=== PATIENT | female | born 2000 | race Caucasian/White ===

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

== ENCOUNTER 2023-03-05 15:07 | Observation (INO) ==
[2023-03-05] MEDS ORDERED: ONDANSETRON INJ 2 MG/ML 2 ML VIAL IV STA (15:53)
[2023-03-05] MEDS ORDERED: SODIUM CHLORIDE 0.9% 1,000 ML IV STA (15:53)
[2023-03-05] MEDS ORDERED: MoRPHine SULFATE 4 MG/ML 1 ML CARP\\VIAL IV STA (15:53)
[2023-03-05 16:54] LABS: Basophils # (auto) 0.02 K/uL (0.00-0.20); Basophils % (auto) 0.4 %; Eosinophils # (auto) 0.07 K/uL (0.00-0.50); Eosinophils % (auto) 1.4 %; Hematocrit (blood only) 43.5 % (37.0-47.0); Hemoglobin 14.6 g/dl (12.0-16.0); Immature Granulocytes # (auto) 0.01 K/uL (0.01-0.20); Immature Granulocytes % (auto) 0.2 %; Lymphocytes # (auto) 1.26 K/uL (1.20-3.40); Mean Corpuscular Hemoglobin 30.3 pg (25.0-34.0); Mean Corpuscular Hgb Conc 33.6 g/dL (32.0-36.0); Mean Corpuscular Volume 90.2 fL (80.0-100.0); Mean Platelet Volume 10.6 fL (9.4-12.4); Monocytes # (auto) 0.49 K/uL (0.11-0.59); Monocytes % (auto) 10.1 %; Neutrophils % (auto) 61.9 %; Platelet Count 210 K/uL (130-400); RDW Coefficient of Variation 12.2 % (11.5-14.5); RDW Standard Deviation 40.4 fL (36.4-46.3); Red Blood Count 4.82 M/uL (4.20-5.40); White Blood Count 4.85 K/ul (4.8-10.8)
[2023-03-05 17:06] LABS: Alanine Aminotransferase 16 U/L (7-52); Albumin Globulin Ratio 1.4 (0.9-2); Albumin Level 4.5 gm/dl (3.4-5.0); Alkaline Phosphatase 98 U/L (34-104); Anion Gap 5 (3-11); Aspartate Aminotransferase 20 U/L (13-39); BUN Creatinine Ratio 17.4 (10-20); Bilirubin,Total 0.9 mg/dl (0.2-1.0); Blood Urea Nitrogen 16 mg/dl (6-23); Calcium 9.3 mg/dl (8.6-10.3); Carbon Dioxide 26 mmol/L (21-32); Chloride 105 mmol/L (98-107); Creatinine Clr Calc Pharmacy 109.9 ml/min; Est GFR (African American) 103.9 ml/min; Est GFR (Non-African American) 89.6 ml/min; Globulin 3.2 gm/dl (2.5-4.0); Glucose 78 mg/dl (70-99(Fasting)); Lipase 24 U/L (11-82); Potassium 3.7 mmol/L (3.5-5.1); Sodium 136 mmol/L (136-145); Total Protein 7.7 gm/dl (6.0-8.3)
--- NOTE | 2023-03-05 18:04 | Ultrasound Report ---
ABDOMINAL ULTRASOUND, RIGHT UPPER QUADRANT HISTORY: Acute right upper quadrant abdominal pain RUQ pain. COMPARISON: 12/22/2022 FINDINGS: Pancreas: The pancreas demonstrates a normal echotexture. Liver: Unremarkable. Gallbladder: No gallbladder wall thickening. No gallstones. Sonographic Prieto's sign was unable to b e assessed secondary to the patient recently receiving pain medication. CBD: 0.5 cm. Right kidney: No hydronephrosis. IMPRESSION: No significant abnormality identified within the right upper quadrant. ACT 112: Negative or not required by law. Electronically signed by: Johan Young M.D. 03/05/2023 6:03 PM
--- NOTE | 2023-03-05 18:25 | Emergency Department Note ---
Impression & Plan Abnormal biliary HIDA scan, Right upper quadrant abdominal pain, Weight loss ED Provider Note CHIEF COMPLAINT: Right upper quadrant pain, weight loss HISTORY OF PRESENT ILLNESS: This 22-year-old female patient past medical history of GERD presents to the emergency department with complaints of recurrent right upper quadrant abdominal pain, particularly after eating. The patient has had symptoms ongoing for the last 2 months. She has been evaluated by gastroenterology through [facility], had an EGD and colonoscopy. Has had evaluation for inflammatory bowel disease. Father states she has lost 30 pounds over the last 2 to 3 months. She has been eating white rice and chicken for the most part. She did have an attack of pain last evening and becomes very nauseated. She complained of palpitations she did not vomit and has not had any fevers. Patient states her diarrhea has settled after beginning cholestyramine. She did have a HIDA scan performed this last week that revealed an EF of 99%. REVIEW OF SYSTEMS: A review of systems was performed with positives and pertinent negatives listed in the history of present illness. 10 systems were reviewed and are otherwise negative. ALLERGIES: see below MEDICATIONS: see below PMH: see below SOCIAL HISTORY: see below DDx: Cholecystitis, pancreatitis, peptic ulcer disease, inflammatory bowel disease, irritable bowel syndrome among others PHYSICAL EXAM: Vital signs reviewed. General: Well-appearing 22-year-old female, in no significant distress. HEENT: No scleral icterus, PERRLA, neck supple. Atraumatic. Cardiovascular: Regular rate and rhythm, no extra sounds. Pulmonary: Clear to auscultation bilaterally, normal work of breathing. Abdomen: Soft, mildly tender to palpation in the right upper quadrant, no rebound or guarding, nondistended, positive bowel sounds. Musculoskeletal: Atraumatic, no peripheral edema. Neurologic: Patient awake alert and oriented x 3, speech is clear Skin: Warm, dry, no rash EMERGENCY DEPARTMENT COURSE/MDM: This patient was evaluated and appeared to be in no significant distress. IV access was obtained and laboratory work was drawn. Patient was placed quality assurance monitor noted to be in a normal sinus rhythm. She was hydrated with normal saline solution, given IV morphine and Zofran for her discomfort. Patient's laboratory work is fairly reassuring. UA is negative as well as test. Ultrasound the right upper quadrant is negative for acute cholecystitis or cholelithiasis. 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 After extensive discussion with the patient's father, a family medicine physician who also provided much of the detail of the work-up that has already been performed and Dr. Cornell of general surgery, we determined that the patient would be admitted to the surgery service for possible cholecystectomy tomorrow. Patient, both parents seem happy with this plan and agreed. MONITORING: An order for cardiac monitoring was placed and the patient is noted to be in a NSR at 74 beats per minute. RADIOLOGY: Ultrasound right upper quadrant per radiology reveals no evidence of acute cholecystitis or cholelithiasis. DISPOSITION: Admission Past Med/Surg History Family History Grandmother (Maternal) Cancer lymphoma Grandfather (Maternal) Cancer Social History (Updated 12/01/22 @ 16:32 by Mariia Mathias RN) Smoking Status: Never smoker Hx Alcohol Use: Yes Hx Substance Use: No Preferred Language: Malaysian Communication Ability: Effective Appeals Coordinator Required: No Beliefs That Will Affect Care: None marital status: Single Current Living Situation: Alone current occupational status: student Other Information That Helps Us Care for You: No Feels Safe at Home: Yes Safety Concerns: Feels Safe At This Time during the past year weight has: increased > 10 lbs Assistive Devices: None Allergies Allergies Allergy/AdvReac Type Severity Reaction Status Date / Time apple Allergy Intermediate RAW Verified 03/05/23 17:35 APPLES---ORAL ALLERGY SYNDROME carrot Allergy Intermediate RAW Verified 03/05/23 17:35 CARROTS--ORAL ALLERGY SYNDROME orange Allergy Intermediate RAW Verified 03/05/23 17:35 ORANGES--ORAL ALLERGY SYNDROME Home Meds Home Medications Medication Instructions Recorded Confirmed acetaminophen 500 mg tablet 1,000 mg PO DIRECTED PRN 03/05/23 03/05/23 (Tylenol Extra Strength) PAIN/FEVER colestipol 1 gram tablet 1 g PO TID 03/05/23 03/05/23 dicyclomine 10 mg capsule 10 mg PO QID PRN ABD PAIN 03/05/23 03/05/23 ondansetron HCl 8 mg tablet 8 mg PO TID PRN NAUSEA/VOMITING 03/05/23 03/05/23 Previous Rx's Medication Instructions Recorded oxycodone-acetaminophen 5 mg-325 1 tab PO Q4H PRN pain #7 tabs 03/06/23 mg tablet (Percocet) Results & Data (ED) Vital Signs Vital Signs - 24 hr 03/05/23 15:22 03/05/23 15:54 03/05/23 16:11 Temperature 36.4 C L Temperature Source Temporal Artery Scan Pulse Rate 83 75 Respiratory Rate 19 18 12 Respiratory Effort / Characteristics Non-Labored Respiratory Depth Normal Normal Blood Pressure 145/92 H Blood Pressure [Right Arm] 124/82 Blood Pressure Mean 109 Blood Pressure Mean [Right Arm] 96 Pulse Oximetry 100 96 96 Oxygen Delivery Method Room Air Room Air Room Air Sepsis Recent Fever Within 48 Hours No Sepsis New/Unexplained Change in Mental Status No Sepsis Action Taken by Nursing No Action Required 03/05/23 16:13 03/05/23 16:30 03/05/23 17:00 Temperature Temperature Source Pulse Rate 70 70 71 Respiratory Rate 19 19 Respiratory Effort / Characteristics Respiratory Depth Blood Pressure 120/83 123/75 Blood Pressure [Right Arm] Blood Pressure Mean 91 93 Blood Pressure Mean [Right Arm] Pulse Oximetry 97 100 Oxygen Delivery Method Room Air Room Air Sepsis Recent Fever Within 48 Hours Sepsis New/Unexplained Change in Mental Status Sepsis Action Taken by Nursing 03/05/23 17:20 Temperature Temperature Source Pulse Rate 74 Respiratory Rate 22 Respiratory Effort / Characteristics Respiratory Depth Blood Pressure 120/80 Blood Pressure [Right Arm] Blood Pressure Mean 93 Blood Pressure Mean [Right Arm] Pulse Oximetry 96 Oxygen Delivery Method Room Air Sepsis Recent Fever Within 48 Hours Sepsis New/Unexplained Change in Mental Status Sepsis Action Taken by [facility] Medications Current Medication List: was personally reviewed by me Laboratory Data Attestation: I reviewed the patient's lab results. 03/05/23 16:08 03/05/23 16:08 Lab Results 03/05/23 03/05/23 Range/Units 16:08 19:43 WBC 4.85 (4.8-10.8) K/ul RBC 4.82 (4.20-5.40) M/uL Hgb 14.6 (12.0-16.0) g/dl Hct 43.5 (37.0-47.0) % MCV 90.2 (80.0-100.0) fL MCH 30.3 (25.0-34.0) pg MCHC 33.6 (32.0-36.0) g/dL RDW Std Deviation 40.4 (36.4-46.3) fL RDW Coeff of Daniel 12.2 (11.5-14.5) % Plt Count 210 (130-400) K/uL MPV 10.6 (9.4-12.4) fL Immature Gran % (Auto) 0.2 % Neut % (Auto) 61.9 % Lymph % (Auto) 26.0 % [place] % (Auto) 10.1 % Eos % (Auto) 1.4 % Baso % (Auto) 0.4 % Neut # (Auto) 3.00 (1.40-6.50) K/uL Lymph # (Auto) 1.26 (1.20-3.40) K/uL [place] # (Auto) 0.49 (0.11-0.59) K/uL Eos # (Auto) 0.07 (0.00-0.50) K/uL Baso # (Auto) 0.02 (0.00-0.20) K/uL Immature Gran # (Auto) 0.01 (0.01-0.20) K/uL ESR 9 (0-20) mm/hr Sodium 136 (136-145) mmol/L Potassium 3.7 (3.5-5.1) mmol/L Chloride 105 (98-107) mmol/L Carbon Dioxide 26 (21-32) mmol/L Anion Gap 5 (3-11) BUN 16 (6-23) mg/dl Creatinine 0.92 (0.6-1.2) mg/dl Est Cr Clr Drug Dosing 109.9 ml/min Est GFR ( Amer) 103.9 ml/min Est GFR (Non-Af Amer) 89.6 ml/min BUN/Creatinine Ratio 17.4 (10-20) Glucose 78 (70-99(Fasting)) mg/dl Calcium 9.3 (8.6-10.3) mg/dl Total Bilirubin 0.9 (0.2-1.0) mg/dl AST 20 (13-39) U/L ALT 16 (7-52) U/L Alkaline Phosphatase 98 (34-104) U/L C-Reactive Protein < 0.50 (0-0.5) mg/dl Total Protein 7.7 (6.0-8.3) gm/dl Albumin 4.5 (3.4-5.0) gm/dl Globulin 3.2 (2.5-4.0) gm/dl Albumin/Globulin Ratio 1.4 (0.9-2) Lipase 24 (11-82) U/L HCG, Qual Negative (Negative) Urine Color Yellow Urine Appearance Cloudy A (Clear) Urine pH 6.0 (4.5-7.5) Ur Specific [place] 1.027 (1.000-1.030) Urine Protein Negative (Negative) Urine Glucose (UA) Negative (Negative) Urine Ketones Trace H (Negative) Urine Blood Negative (Negative) Urine Nitrite Negative (Negative) Urine Bilirubin Negative (Negative) Urine Urobilinogen Negative (Negative) Ur Leukocyte Esterase Negative (Negative) Urine WBC (Auto) 1-5 (0-5) /hpf Urine RBC (Auto) 0-4 (0-4) /hpf U Hyaline Cast (Auto) 1-5 (0-5) /lpf U Epithel Cells (Auto) >30 H (0-5) /lpf Urine Bacteria (Auto) 1+ H (Negative) Urine Opiates Screen Neg (Neg) Ur Methadone, Qual Neg (Neg) Urine Barbiturates Neg (Neg) Ur Phencyclidine (PCP) Neg (Neg) U Amphetamin/Meth Scrn Neg (Neg) MDMA (Ecstasy) Screen Neg (Neg) U Benzodiazepines Scrn Neg (Neg) Ur Cocaine Metabolite Neg (Neg) U Marijuana (THC) Screen Neg (Neg) Administered Medications Discontinued Medications Bupivacaine HCl (Bupivacaine 0.5 % 5 Mg/1 Ml Mpf 30ml Vial) Confirm Administered Dose 30 ml .ROUTE .STFeedback-Machine-MED ONE Stop: 03/06/23 07:08 Last Admin: 03/06/23 09:40 Dose: 30 ml Documented By: MDD Colestipol HCl (Colestipol Hcl 1 Gm Tab) 1 gm PO DAILY@1000,1500,2200 [facility] Stop: 04/05/23 14:59 Last Admin: 03/06/23 17:46 Dose: Not Given Documented By: KD Fentanyl Citrate (Fentanyl Citrate Pf 100 Mcg/2 Ml Vial) 25 mcg IV Q5M PRN PRN Reason: PACU Use Only-Pain Stop: 03/06/23 17:04 Last Admin: 03/06/23 11:15 Dose: 25 mcg Documented By: Admin: 03/06/23 11:10 Dose: 25 mcg Documented By: Admin: 03/06/23 11:05 Dose: 25 mcg Documented By: Admin: 03/06/23 10:54 Dose: 25 mcg Documented By: SED Fentanyl Citrate (Fentanyl Citrate Pf 100 Mcg/2 Ml Vial) Confirm Administered Dose 100 mcg .ROUTE .STK-MED ONE Stop: 03/06/23 10:50 Last Admin: 03/06/23 12:49 Dose: Not Given Documented By: MONICA Sodium Chloride (Nss) 1,000 mls @ 999 mls/hr IV .Q1H1M STA Stop: 03/05/23 16:53 Last Infusion: 03/05/23 17:13 Dose: Infused Documented By: Admin: 03/05/23 16:01 Dose: 999 mls/hr Documented By: ABBIE Lactated Ringer's (Lr) 1,000 mls @ 100 mls/hr IV .Q10H SUSI Stop: 04/04/23 21:39 Last Admin: 03/06/23 18:02 Dose: Not Given Documented By: Infusion: 03/06/23 18:02 Dose: Infused Documented By: Infusion: 03/06/23 14:04 Dose: 100 mls/hr Documented By: Admin: 03/06/23 05:21 Dose: 100 mls/hr Documented By: Infusion: 03/06/23 05:21 Dose: Infused Documented By: Admin: 03/05/23 22:08 Dose: 100 mls/hr Documented By: MARIBELL Promethazine HCl 12.5 mg/ (Sodium Chloride) 50.5 mls @ 204 mls/hr IV ONCE PRN PRN Reason: PACU Use Only-Nausea/Vomiting Stop: 03/06/23 17:04 Last Infusion: 03/06/23 11:44 Dose: Infused Documented By: Admin: 03/06/23 10:53 Dose: 204 mls/hr Documented By: ARPIT Cefazolin Sodium (Ancef 2000mg) 2,000 mg in 15 mls @ 3.75 mls/min IV PREOP ONE; Protocol Stop: 03/06/23 09:36 Last Admin: 03/06/23 09:21 Dose: 3.75 mls/min Documented By: GLEN Ketorolac Tromethamine (Ketorolac Tromethamine 15 Mg/Ml Vial) 15 mg IV Q6H PRN PRN Reason: Pain & Pre PT Stop: 03/10/23 21:39 Last Admin: 03/05/23 23:27 Dose: 15 mg Documented By: MARIBELL Morphine Sulfate (Morphine Sulfate 4 Mg/Ml 1 Ml Carp\Vial) 4 mg IV NOW STA Stop: 03/05/23 15:54 Last Admin: 03/05/23 16:02 Dose: 4 mg Documented By: ABBIE Morphine Sulfate (Morphine Sulfate 4 Mg/Ml 1 Ml Carp\Vial) 4 mg IV Q3H PRN PRN Reason: Pain (6,7,8,9,10) Stop: 03/20/23 11:54 Last Admin: 03/06/23 12:29 Dose: 4 mg Documented By: MONICA Ondansetron HCl (Ondansetron Inj 2 Mg/Ml 2 Ml Vial) 4 mg IV NOW STA Stop: 03/05/23 15:54 Last Admin: 03/05/23 16:02 Dose: 4 mg Documented By: ABBIE Ondansetron HCl (Ondansetron Inj 2 Mg/Ml 2 Ml Vial) 4 mg IV Q4H PRN PRN Reason: Nausea And Vomiting Stop: 04/04/23 21:39 Last Admin: 03/06/23 07:46 Dose: 4 mg Documented By: MONICA Oxycodone/Acetaminophen (Oxycodone/Acetaminophen 5mg/325mg Tab) 1 tab PO Q4H PRN PRN Reason: MODERATE Pain (4,5,6) & Pre PT Stop: 03/20/23 11:54 Last Admin: 03/06/23 15:06 Dose: 1 tab Documented By: MONICA Imaging Data Radiologist's Impression: Gallbladder Ultrasound 03/05/23 15:52 ABDOMINAL ULTRASOUND, RIGHT UPPER QUADRANT HISTORY: Acute right upper quadrant abdominal pain RUQ pain. COMPARISON: 12/22/2022 FINDINGS: Pancreas: The pancreas demonstrates a normal echotexture. Liver: Unremarkable. Gallbladder: No gallbladder wall thickening. No gallstones. Sonographic Prieto's sign was unable to be assessed secondary to the patient recently receiving pain medication. CBD: 0.5 cm. Right kidney: No hydronephrosis. IMPRESSION: No significant abnormality identified within the right upper quadrant. ACT 112: Negative or not required by law. Electronically signed by: Johan Young M.D. 03/05/2023 6:03 PM Discharge Plan Visit Data Chief Complaint: Abdominal Pain Stated Complaint: SEVERE ABDOMIAL PAIN, RT FLANK PAIN, PALPITATIONS ED Provider: Larissa Bear Discharge Problem: Abnormal biliary HIDA scan, Right upper quadrant abdominal pain, Weight loss Patient Disposition: Admitted As Inpatient Condition: Good Discharge Instructions Interventions: ED Discharge Assessment Last Done: 03/05/23 21:09
[2023-03-05 19:48] LABS: C Reactive Protein < 0.50 mg/dl (0-0.5)
[2023-03-05 20:01] LABS: Appearance Urine Cloudy (Clear); Bacteria Urine Automated 1+ (Negative); Bilirubin Urine Negative (Negative); Blood Urine Negative (Negative); Color Urine Yellow; Epithelial Cell Urine Auto >30 /lpf (0-5); Glucose Urine UA Negative (Negative); Ketones Urine Trace (Negative); Leukocyte Esterase Urine Negative (Negative); Nitrite Urine Negative (Negative); Protein Urine Negative (Negative); RBC Urine Automated 0-4 /hpf (0-4); Specific Gravity Urine 1.027 (1.000-1.030); Urobilinogen Urine Negative (Negative)
[2023-03-05 20:09] LABS: Pregnancy Test, Serum Negative (Negative)
--- NOTE | 2023-03-05 20:11 | History & Physical Report ---
Date of Service March 05, 2023 Assessment & Plan (1) Abdominal pain: Plan: 22 yr old woman with persistent abdominal pain and diarrhea, extensive workup negative. Only abnormality is HIDA scan showing EF 99% (and a lab showing elevated fecal calprotecin - nonspecific). We reviewed that hyperkinetic gallbladder is not well understood - lap cholecystectomy is almost a diagnostic test in itself to see if the gallbladder is the source of her symptoms. Discussed up to 50% risk of recurrence/ persistence of symptoms. Other risks of bleeding, infection, conversion to open, bile leak, persistent diarrhea, intolerance to foods reviewed. She prefers to have the gallbladder removed as it is the only abnormality identified. Consent signed. Will place in observation overnight and plan on surgery tomorrow. History of Present Illness Chief Complaint: abdominal pain Primary Care Provider: Tiny Wheatley, 22 yr old woman (daughter of Dr. Hdez) here for gallbladder removal due to worsening abdominal symptoms, nausea, almost 30 lb weight loss. Symptoms have severely worsened in the past week, taking zofran but not able to eat much of anything. No fevers or chills. Pain occurs more often after eating but is not always related to fatty meals. Has had ongoing diarrhea for months, on cholesti ericka. Saw Dr. Milligan and had egd/ colonoscopy with biopsies which were negative. H.pylori negative. Celiac panel negative, RUQ U/S x 2 negative. HIDA scan with EF of 99%. Allergies Allergy/AdvReac Type Severity Reaction Status Date / Time apple Allergy Intermediate RAW Verified 03/05/23 17:35 APPLES---ORAL ALLERGY SYNDROME carrot Allergy Intermediate RAW Verified 03/05/23 17:35 CARROTS--ORAL ALLERGY SYNDROME orange Allergy Intermediate RAW Verified 03/05/23 17:35 ORANGES--ORAL ALLERGY SYNDROME Home Medications Medication Instructions Recorded Confirmed Type acetaminophen 500 mg tablet 1,000 mg PO DIRECTED PRN 03/05/23 03/05/23 History (Tylenol Extra Strength) PAIN/FEVER colestipol 1 gram tablet 1 g PO TID 03/05/23 03/05/23 History dicyclomine 10 mg capsule 10 mg PO QID PRN ABD PAIN 03/05/23 03/05/23 History ondansetron HCl 8 mg tablet 8 mg PO TID PRN NAUSEA/VOMITING 03/05/23 03/05/23 History Past Med/Surg History Family History Grandmother (Maternal) Cancer lymphoma Grandfather (Maternal) Cancer Social History (Updated 12/01/22 @ 16:32 by Mariia Mathias RN) Smoking Status: Never smoker Preferred Language: Italian marital status: Single current occupational status: student Feels Safe at Home: Yes during the past year weight has: increased > 10 lbs Review of Systems Review of Systems: All systems reviewed & are unremarkable except as noted in HPI & below Physical Exam Constitutional: WD/WN, vitals as above Eyes: PERRL, conjunctivae normal, anicteric sclerae Neck: trachea midline, no thyromegaly Respiratory: normal respiratory effort, lungs clear to auscultation Cardiovascular: RRR, no murmur, no edema Gastrointestinal (Abdomen): Inspection/Auscultation: abdomen normal to inspection and normal bowel sounds; abdomen not distended Percussion/Palpation: + abdomen tender (mild on right side of abdomen) and abdomen soft; no guarding, no hepatosplenomegaly and no hernia Musculoskeletal: no cyanosis or clubbing, extremities motor strength 5/5 Neurologic: awake; no focal motor deficits Psychiatric: A+Ox3, euthymic affect Results & Data Results & Data Vital Signs (Past 12 Hours) Vital Signs Temp Pulse Resp BP BP Pulse Ox O2 Del Method 03/05/23 17:20 74 22 120/80 96 Room Air 03/05/23 17:00 71 19 123/75 100 Room Air 03/05/23 16:30 70 19 120/83 97 Room Air 03/05/23 16:13 70 03/05/23 16:11 12 124/82 96 Room Air 03/05/23 15:54 75 18 96 Room Air 03/05/23 15:22 36.4 C L 83 19 145/92 H 100 Room Air Laboratory Results 03/05/23 03/05/23 Range/Units 19:43 16:08 WBC 4.85 (4.8-10.8) K/ul RBC 4.82 (4.20-5.40) M/uL Hgb 14.6 (12.0-16.0) g/dl Hct 43.5 (37.0-47.0) % MCV 90.2 (80.0-100.0) fL MCH 30.3 (25.0-34.0) pg MCHC 33.6 (32.0-36.0) g/dL RDW Std Deviation 40.4 (36.4-46.3) fL RDW Coeff of Daniel 12.2 (11.5-14.5) % Plt Count 210 (130-400) K/uL MPV 10.6 (9.4-12.4) fL Immature Gran % (Auto) 0.2 % Neut % (Auto) 61.9 % Lymph % (Auto) 26.0 % [place] % (Auto) 10.1 % Eos % (Auto) 1.4 % Baso % (Auto) 0.4 % Neut # (Auto) 3.00 (1.40-6.50) K/uL Lymph # (Auto) 1.26 (1.20-3.40) K/uL [place] # (Auto) 0.49 (0.11-0.59) K/uL Eos # (Auto) 0.07 (0.00-0.50) K/uL Baso # (Auto) 0.02 (0.00-0.20) K/uL Immature Gran # (Auto) 0.01 (0.01-0.20) K/uL ESR Pending Sodium 136 (136-145) mmol/L Potassium 3.7 (3.5-5.1) mmol/L Chloride 105 (98-107) mmol/L Carbon Dioxide 26 (21-32) mmol/L Anion Gap 5 (3-11) BUN 16 (6-23) mg/dl Creatinine 0.92 (0.6-1.2) mg/dl Est Cr Clr Drug Dosing 109.9 ml/min Est GFR ( Amer) 103.9 ml/min Est GFR (Non-Af Amer) 89.6 ml/min BUN/Creatinine Ratio 17.4 (10-20) Glucose 78 (70-99(Fasting)) mg/dl Calcium 9.3 (8.6-10.3) mg/dl Total Bilirubin 0.9 (0.2-1.0) mg/dl AST 20 (13-39) U/L ALT 16 (7-52) U/L Alkaline Phosphatase 98 (34-104) U/L C-Reactive Protein < 0.50 (0-0.5) mg/dl Total Protein 7.7 (6.0-8.3) gm/dl Albumin 4.5 (3.4-5.0) gm/dl Globulin 3.2 (2.5-4.0) gm/dl Albumin/Globulin Ratio 1.4 (0.9-2) Lipase 24 (11-82) U/L HCG, Qual Pending Urine Color Yellow Urine Appearance Cloudy A (Clear) Urine pH 6.0 (4.5-7.5) Ur Specific [place] 1.027 (1.000-1.030) Urine Protein Negative (Negative) Urine Glucose (UA) Negative (Negative) Urine Ketones Trace H (Negative) Urine Blood Negative (Negative) Urine Nitrite Negative (Negative) Urine Bilirubin Negative (Negative) Urine Urobilinogen Negative (Negative) Ur Leukocyte Esterase Negative (Negative) Urine WBC (Auto) 1-5 (0-5) /hpf Urine RBC (Auto) 0-4 (0-4) /hpf U Hyaline Cast (Auto) 1-5 (0-5) /lpf U Epithel Cells (Auto) >30 H (0-5) /lpf Urine Bacteria (Auto) 1+ H (Negative) Urine Opiates Screen Pending Ur Methadone, Qual Pending Urine Barbiturates Pending Ur Phencyclidine (PCP) Pending U Amphetamin/Meth Scrn Pending MDMA (Ecstasy) Screen Pending U Benzodiazepines Scrn Pending Ur Cocaine Metabolite Pending U Marijuana (THC) Screen Pending Diagnostic Findings Chart in [employer] and [employer] reviewed. Imaging including negative RUQ U/S HIDA scan showing EF 99% all reviewed. Code Status & VTE Plan VTE Prophylaxis Plan VTE Prophylaxis will be ordered: Yes (1) Abdominal pain Abdominal location: right upper quadrant Qualified Code(s): R10.11 - Right upper quadrant pain
--- NOTE | 2023-03-05 20:42 | Electrocardiogram Report ---
Test Reason : Blood Pressure : / mmHG Vent. Rate : 068 BPM Atrial Rate : 068 BPM P-R Int : 136 ms QRS Dur : 088 ms QT Int : 382 ms P-R-T Axes : 029 -22 016 degrees QTc Int : 406 ms Poor data quality, interpretation may be adversely affected Normal sinus rhythm with sinus arrhythmia Normal ECG When compared with ECG of 07-JUL-2016 07:11, PREVIOUS ECG IS PRESENT Confirmed by Ghanshyam Moore ([id number]) on 03/05/2023 8:41:58 PM Referred By: Confirmed By:Medardo Moore
[2023-03-05 20:43] LABS: Amphetamines+Metham, Urine Neg (Neg); Barbiturates, Urine Neg (Neg); Benzodiazepine, Urine Neg (Neg); Cocaine, Urine Neg (Neg); MDMA (Ecstacy), Urine Neg (Neg); Methadone, Urine Neg (Neg); Opiate, Urine Neg (Neg); Phencyclidine, Urine Neg (Neg)
[2023-03-05] MEDS ORDERED: KETOROLAC TROMETHAMINE 15 MG/ML VIAL IV PRN (21:40)
[2023-03-05] MEDS ORDERED: ONDANSETRON INJ 2 MG/ML 2 ML VIAL IV PRN (21:40)
[2023-03-05] MEDS: LACTATED RINGER'S 1,000 ML IV SCH (22:08)
[2023-03-06] MEDS: LACTATED RINGER'S 1,000 ML IV SCH ×2 (05:21→18:02)
[2023-03-06] MEDS ORDERED: BUPIVACAINE 0.5 % 5 MG/1 ML MPF 30ML VIAL ONE (07:07)
--- NOTE | 2023-03-06 07:18 | Anesthesiology Consultation ---
Date of Service March 06, 2023 Assessment & Plan Chart Review Chart Review: Acceptable Risk for Surgery and Patient NOT seen in Pre Admission Testing Consults Requested none ASA [id number] Proposed Anesthesia Anesthesia Type: General History Surgery Operation Date: 03/06/23 09:00 Proposed Procedures p Laparoscopic Cholecystectomy - Alondra Cornell MD Height/Weight Height: 5 ft 7 in Weight: 86.9 kg Allergies Allergy/AdvReac Type Severity Reaction Status Date / Time apple Allergy Intermediate RAW Verified 03/05/23 17:35 APPLES---ORAL ALLERGY SYNDROME carrot Allergy Intermediate RAW Verified 03/05/23 17:35 CARROTS--ORAL ALLERGY SYNDROME orange Allergy Intermediate RAW Verified 03/05/23 17:35 ORANGES--ORAL ALLERGY SYNDROME Medications Home Medications Medication Instructions Recorded Confirmed Last Taken acetaminophen 500 mg tablet 1,000 mg PO DIRECTED PRN 03/05/23 03/05/23 Unknown (Tylenol Extra Strength) PAIN/FEVER colestipol 1 gram tablet 1 g PO TID 03/05/23 03/05/23 03/04/23 dicyclomine 10 mg capsule 10 mg PO QID PRN ABD PAIN 03/05/23 03/05/23 03/05/23 08:00 ondansetron HCl 8 mg tablet 8 mg PO TID PRN NAUSEA/VOMITING 03/05/23 03/05/23 Unknown Active Medications Generic Name Dose Route Start Last Admin Trade Name Freq PRN Reason Stop Dose Admin Lactated Ringer's 1,000 mls @ 100 mls/hr 03/05/23 21:40 03/06/23 05:21 Lr IV 04/04/23 21:39 100 mls/hr .Q10H SUSI Administration Ketorolac Tromethamine 15 mg 03/05/23 21:40 03/05/23 23:27 Ketorolac Tromethamine 15 Mg/Ml Vial IV 03/10/23 21:39 15 mg Q6H PRN Administration Pain & Pre PT Past Medical History obese GERD Exercise / Class Metabolic Activity II 4-5 Yardwork/Stairs/Walk up hill Past Family History Family History Grandmother (Maternal) Cancer lymphoma Grandfather (Maternal) Cancer Past Anesthesia History No Hx of Anesthesia Complications and No Family Hx of Anesthesia Complications History of PONV No Hx of PONV and No Hx of Motion Sickness Social History Smoking Status: Never smoker Hx Alcohol Use: Yes alcohol intake frequency: holidays/special occasions only Hx Substance Use: No substance use type: does not use Physical Exam Vital Signs Last Vital Signs Temp 36.7 C 03/05/23 21:30 Pulse 62 03/05/23 21:30 Resp 16 03/05/23 21:30 BP 130/89 03/05/23 21:30 Pulse Ox 97 03/05/23 21:30 O2 Del Method Room Air 03/05/23 21:30 Testing Laboratory Results 03/05/23 16:08 03/05/23 16:08 Urine Color Yellow 03/05/23 19:43 Urine Appearance Cloudy (Clear) A 03/05/23 19:43 Urine pH 6.0 (4.5-7.5) 03/05/23 19:43 Ur Specific [place] 1.027 (1.000-1.030) 03/05/23 19:43 Urine Protein Negative (Negative) 03/05/23 19:43 Urine Glucose (UA) Negative (Negative) 03/05/23 19:43 Urine Ketones Trace (Negative) H 03/05/23 19:43 Urine Nitrite Negative (Negative) 03/05/23 19:43 Ur Leukocyte Esterase Negative (Negative) 03/05/23 19:43 Urine WBC (Auto) 1-5 /hpf (0-5) 03/05/23 19:43 Urine RBC (Auto) 0-4 /hpf (0-4) 03/05/23 19:43 U Hyaline Cast (Auto) 1-5 /lpf (0-5) 03/05/23 19:43 U Epithel Cells (Auto) >30 /lpf (0-5) H 03/05/23 19:43 Urine Bacteria (Auto) 1+ (Negative) H 03/05/23 19:43 Electrocardiogram Date: 03/05/23 Findings: + NSR @ (@ 70 w/ SA)
[2023-03-06] MEDS ORDERED: LIDOCAINE 2% 2 ML VIAL/AMP(20MG/ML) INFIL ONE (08:48)
[2023-03-06] MEDS ORDERED: PROPOFOL IV EMULSION 10 MG/ML 20 ML VIAL IV ONE (08:48)
[2023-03-06] MEDS ORDERED: DEXAMETHASONE SOD INJ 4 MG/ML VIAL ONE (08:48)
[2023-03-06] MEDS ORDERED: ONDANSETRON INJ 2 MG/ML 2 ML VIAL ONE ×2 (08:48→10:23)
[2023-03-06] MEDS ORDERED: fentaNYL citrate PF 100 MCG/2 ML VIAL ONE ×3 (08:49→10:49)
[2023-03-06] MEDS ORDERED: MIDAZOLAM HCL 1 MG/ML 2ML VIAL ONE (08:49)
[2023-03-06] MEDS ORDERED: ROCURONIUM BROMIDE 10 MG/ML 5 ML VIAL IV ONE (08:50)
[2023-03-06] MEDS ORDERED: FLUMAZENIL 0.1 MG/1 ML 10 ML VIAL IV PRN (09:04)
[2023-03-06] MEDS ORDERED: PROMETHAZINE HCL 12.5 MG in SODIUM CHLORIDE 0.9% 50 ML IV PRN (09:04)
[2023-03-06] MEDS ORDERED: NALOXONE HCL 0.4 MG/1 ML VIAL/CARP IV PRN (09:04)
[2023-03-06] MEDS ORDERED: HYDROmorphone INJ 1 MG/ML SYRINGE IV PRN (09:04)
[2023-03-06] MEDS ORDERED: ePHEDrine sulfate 50 MG/ML AMP IV PRN (09:04)
[2023-03-06] MEDS ORDERED: ATROPINE SULFATE 0.1 MG/ML 10ML SYR IV PRN (09:04)
[2023-03-06] MEDS ORDERED: ONDANSETRON INJ 2 MG/ML 2 ML VIAL IV PRN (09:04)
--- NOTE | 2023-03-06 09:15 | History & Physical Bridge Note ---
Date of Service March 06, 2023 History & Physical Bridge Note I have examined the patient, reviewed the History & Physical and in the interval since the performance of the History & Physical I have noted the following changes of clinical significance: no changes noted
[2023-03-06] MEDS ORDERED: ceFAZolin 330 MG/ML 1 GM VIAL ONE (09:28)
[2023-03-06] MEDS ORDERED: ceFAZolin 2000MG 2,000 MG/15 ML SYR IV ONE (09:33)
[2023-03-06] MEDS ORDERED: KETOROLAC 30 MG/ML VIAL ONE (09:55)
[2023-03-06] MEDS ORDERED: SUGAMMADEX SODIUM 200 MG/2 ML VIAL IV ONE (09:57)
--- NOTE | 2023-03-06 10:26 | Operative Report ---
PG Post Operative Report Pre & Post Diagnosis Operation Date: 03/06/23 09:00 Pre-Op Diagnosis: hyperkinetic gallbladder, abdominal pain Post-Op Diagnosis: hyperkinetic gallbladder, abdominal pain I identified the patient and participated in the time-out.: Yes Procedure Operation Date: 03/06/23 09:00 Actual Procedures p Laparoscopic Cholecystectomy - Alondra Cornell MD Surgeon Alondra Cornell MD Glass Curvature Gauger none Estimated Blood Loss 5 Findings Consistent with Post-Op Diagnosis normal appearing gallbladder with minimal adhesions of duodenum Fluids 1100 cc Specimens gallbladder Drains none Anesthesia Type General Complications none Disposition Accompanied Patient To Recovery: No Indications 22-year-old woman with abdominal pain diarrhea and weight loss. Extensive work- up only revealed a hyperkinetic gallbladder. After counseling she elected to undergo laparoscopic cholecystectomy. She did understand risks of persistence of her symptoms. Description of Procedure The patient received 2 g of Ancef preoperatively. After the induction of general endotracheal anesthesia, she had placement of sequential compression devices. Her abdomen was sterilely prepped and draped. She was positioned in Trendelenburg. A supraumbilical incision was made and a Veress needle placed into the peritoneal cavity. This was tested with a saline drop test. Initial pressure was 4 mmHg and this was taken up to 15 mmHg. A 5 mm trocar was placed. The camera was through the trocar site. 3 additional trocars were placed under direct vision. A 11 mm in the epigastrium and 2 5 mm on the right side of the abdomen. The abdomen was inspected and noted to be normal. The gallbladder was grasped and retracted over the edge of the liver. Dissection was begun at the triangle of Calot and the cystic duct and cystic artery identified. The critical views were seen anteriorly and posteriorly. The gallbladder was doubly clipped on the remaining side doubly clipped on the gallbladder side and divided. The cystic artery was similarly clipped and divided. The gallbladder was dissected off the liver bed without difficulty. It was placed in an Endobag and removed through the epigastric incision. The abdomen was irrigated and suctioned clear. Hemostasis was noted to be present. The trocars were removed. 30 cc of half percent Marcaine was used for local anesthesia. The fascia of the epigastric incision was closed with 0 Vicryl stitches placed anteriorly. The skin of all 4 incisions closed with running subcuticular 4-0 Vicryl sutures. Steri-Strips and sterile dressings were applied. She was awakened from anesthesia and taken to recovery in stable condition. I attest to the content of the Intraoperative Record and any orders documented therein. Any exceptions are noted below.
[2023-03-06] MEDS: fentaNYL citrate PF 100 MCG/2 ML VIAL IV PRN ×4 (10:54→11:15)
[2023-03-06] MEDS ORDERED: MoRPHine SULFATE 4 MG/ML 1 ML CARP\\VIAL IV PRN (11:55)
[2023-03-06] MEDS ORDERED: oxyCODONE/ACETAMINOPHEN 5mg/325mg TAB PO PRN ×2 (11:55)
[2023-03-06] MEDS ORDERED: MoRPHine SULFATE 2 MG/ML CARP IV PRN (11:55)
[2023-03-06] MEDS ORDERED: ACETAMINOPHEN 500 MG TAB PO PRN (11:55)
[2023-03-06] MEDS ORDERED: DICYCLOMINE HCL 10 MG CAP PO PRN (11:55)
--- NOTE | 2023-03-06 11:57 | Anesthesiology Progress Note ---
Date of Service March 06, 2023 Anesthesia Post Procedure Vital Signs Vital Signs: Temp Pulse Pulse Pulse Resp BP BP 03/06/23 11:40 95 H 21 129/81 03/06/23 11:25 36.3 C L 86 17 126/73 03/06/23 11:15 71 17 130/71 03/06/23 11:05 85 19 148/82 H 03/06/23 10:55 85 18 138/81 03/06/23 10:45 100 H 18 137/73 03/06/23 10:37 36.1 C L 114 H 23 126/89 03/05/23 21:30 36.7 C 62 16 03/05/23 20:24 70 12 122/84 03/05/23 20:11 77 03/05/23 19:30 64 20 117/88 03/05/23 17:20 74 22 120/80 03/05/23 17:00 71 19 123/75 03/05/23 16:30 70 19 120/83 03/05/23 16:13 70 03/05/23 16:11 12 03/05/23 15:54 75 18 03/05/23 15:22 36.4 C L 83 19 145/92 H BP Pulse Ox O2 Del Method O2 Flow Rate 03/06/23 11:40 97 Room Air 03/06/23 11:25 100 Room Air 03/06/23 11:15 100 Oxymask 2 03/06/23 11:05 100 Oxymask 3 03/06/23 10:55 100 Oxymask 3 03/06/23 10:45 100 Oxymask 6 03/06/23 10:37 100 Oxymask 6 03/05/23 21:30 130/89 97 Room Air 03/05/23 20:24 96 Room Air 03/05/23 20:11 03/05/23 19:30 98 Room Air 03/05/23 17:20 96 Room Air 03/05/23 17:00 100 Room Air 03/05/23 16:30 97 Room Air 03/05/23 16:13 03/05/23 16:11 124/82 96 Room Air 03/05/23 15:54 96 Room Air 03/05/23 15:22 100 Room Air Pain Intensity Abdomen: Pain Intensity: 3 Transfer of Care Handoff Completed per policy Notes Mental Status: alert / awake / arousable Patient Amnestic to Procedure: Yes Nausea / Vomiting: adequately controlled Pain: adequately controlled Airway Patency, RR, SpO2: stable & adequate BP & HR: stable & adequate Hydration State: stable & adequate Anesthetic Complications: no major complications apparent
[2023-03-06] MEDS ORDERED: ONDANSETRON 8MG OD TAB PO PRN (12:11)
[2023-03-06] MEDS ORDERED: COLESTIPOL HCL 1 GM TAB PO SCH (15:00)
--- NOTE | 2023-03-08 16:28 | Discharge Summary ---
Date of Service March 08, 2023 Admission HPI Per Admitting Provider 22 yr old woman (daughter of [place]) here for gallbladder removal due to worsening abdominal symptoms, nausea, almost 30 lb weight loss. Symptoms have severely worsened in the past week, taking zofran but not able to eat much of anything. No fevers or chills. Pain occurs more often after eating but is not always related to fatty meals. Has had ongoing diarrhea for months, on cholestipol. Saw Dr. Milligan and had egd/ colonoscopy with biopsies which were negative. H.pylori negative. Celiac panel negative, RUQ U/S x 2 negative. HIDA scan with EF of 99%. Admission Exam (Per Admitting) Constitutional WD/WN, vitals as above Eyes PERRL, conjunctivae normal, anicteric sclerae Neck trachea midline, no thyromegaly Respiratory normal respiratory effort, lungs clear to auscultation Cardiovascular RRR, no murmur, no edema Gastrointestinal (Abdomen) Inspection/Auscultation: abdomen normal to inspection and normal bowel sounds; abdomen not distended Percussion/Palpation: + abdomen tender (mild on right side of abdomen) and abdomen soft; no guarding, no hepatosplenomegaly and no hernia Musculoskeletal no cyanosis or clubbing, extremities motor strength 5/5 Neurologic awake; no focal motor deficits Psychiatric A+Ox3, euthymic affect Discharge Data Consultations 03/05/23 19:23 ED Decision to Admit Stat Procedures Performed Operation Date: 03/06/23 09:00 Actual Procedures p Laparoscopic Cholecystectomy - Alondra Cornell MD Hospital Course (1) Abdominal pain: 22 yr old woman with persistent abdominal pain and diarrhea, extensive workup negative. Only abnormality is HIDA scan showing EF 99% (and a lab showing elevated fecal calprotecin - nonspecific). We reviewed that hyperkinetic gallbladder is not well understood - lap cholecystectomy is almost a diagnostic test in itself to see if the gallbladder is the source of her symptoms. Discussed up to 50% risk of recurrence/ persistence of symptoms. Other risks of bleeding, infection, conversion to open, bile leak, persistent diarrhea, intolerance to foods reviewed. She prefers to have the gallbladder removed as it is the only abnormality identified. Consent signed. Underwent lap cholecystecotmy with routine postop course. Intraop findings notable for normal appear gallbladder.
--- OUTSIDE RECORDS SUMMARY | 2023-03-12 05:38 | External Medical Summary | Summary of Care ---
Author Name Unknown Organization [facility] Address [address] [place] [address] Phone [phone] Care Team Providers Care Tire Mold Tester Name Role Phone DioniBjorn Primary Care Provider Reason for Referral * Precert (Within 10 days (routine)) - Pending Review Specialty Diagnoses / Procedures Referred By Contac t Referred To Contact Radiology Diagnoses Upper abdominal pain Elevated fecal calprotectin Procedures NM HEPATOBILIARY SYSTEM WITH PHARMACOLOGIC INTERVENTION Lita Rodrigez CRNP [address] [place] [address] Referral ID Status Reason Start Date Expiration Date V isits Requested Visits Authorized [id number] Pending Review 02/11/2023 999 999 * Precert (Within 10 days (routine)) - Pending Review Specialty Diagnoses / Procedures Referred By Contac t Referred To Contact Radiology Diagnoses Upper abdominal pain Elevated fecal calprotectin Procedures MRI ABDOMEN W WO CONTRAST MRI PELVIS W WO CONTRAST Lita Rodrigez CRNP [address] [place] [address] Referral ID Status Reason Start Date Expiration Date V isits Requested Visits Authorized [id number] Pending Review 02/11/2023 999 999 Reason for Visit * Reason Comments NEW PATIENT Abdominal issues, noonan d scopes at PS, pt had high shagufta protectant, pt waiting on results, what should she do moving forward Encounter Details Date Type Department Care Team Description 02/11/2023 Office Visit Gastroenterology, [facility] [address] [place] [address] Lita Rodrigez CRNP [address] [place] [id number] Upper abdominal pain*; Elevated fecal calprotectin Allergies Active Allergy Reactions Severity Noted Date Comments Anti-Oxidant 02/11/2023 Fresh fruits and veggies documented as of this encounter (statuses as of 02/14/2023) Medications Medication Sig Dispensed Refills Start Date End Date Status Colestipol HCl 1 GM Oral Tablet (Colestid) Take 1 Tablet by mouth 3 times a day as needed. 0 01/14/2023 Active Famotidine 20 MG Oral Tablet (Pepcid) Take 1 Tablet by mouth in the morning and 1 Tablet before bedtime. 0 01/22/2023 Active Ondansetron HCl 8 MG Oral Tablet (Zofran) 0 02/09/2023 Active Dicyclomine HCl 10 MG Oral Capsule (Bentyl) Take 1 Capsule by mouth in the morning and 1 Capsule at noon and 1 Capsule in the evening and 1 Capsule before bedtime. 120 Capsule 2 02/11/2023 Active Pantoprazole Sodium 40 MG Oral Tablet Delayed Release (Protonix) Take 1 Tablet by mouth in the morning. 0 01/14/2023 02/11/2023 Discontinued (Medication List Clean Up) Sutab 7811-342-822 MG Oral Tablet once. 0 01/27/2023 02/11/2023 Discontinued (Medication List Clean Up) documented as of this encounter (statuses as of 02/14/2023) Active Problems No known active problems documented as of this encounter (statuses as of 02/14/2023) Social History Tobacco Use Types Packs/Day Years Used Date Smoking Tobacco: Never Assessed Sex Assigned at Date Recorded Not on file Job Start Date Occupation Industry Not on file Not on file Not on file documented as of this encounter Last Filed Vital Signs Vital Sign Reading Time Taken Comments Blood Pressure 131/74 02/11/2023 1:31 PM EDT Pulse 61 02/11/2023 1:31 PM EDT Temperature 36.6 C (97.8 F) 02/11/2023 1:31 PM ED T Respiratory Rate - - Oxygen Saturation 99% 02/11/2023 1:31 PM EDT Inhaled Oxygen Concentration - - Weight 89.1 kg (196 lb 8 oz) 02/11/2023 1:31 PM EDT Height 172.7 cm (5' 8") 02/11/2023 1:31 PM EDT Body Mass Index 29.88 02/11/2023 1:31 PM EDT documented in this encounter Progress Notes * JUVENAL Neely - 02/11/2023 1:40 PM EDT Consult requested by Ref: BJORN YOST[[id number]] [address] [facility] [address] [place] [address], [place] [address] (office) [phone] (fax) CC: Abdominal pain, diarrhea, elevated fecal calprotectin HPI: Ms. Clover Hdez is a 22 year old female pt of Bjorn Yost DO with an otherwise unremarkable PMH who presents today for above issues. She is transferring GI care from [facility]/Dr. Milligan and Divina Galindo PA-C. Abd pain: Has had a sensitive stomach her entire life. This began to be a problem in August or October ofthis year. She has episodes of sudden, severe pain after eating certain foods but not consistently w those foods, recalling pain after eating a burger in August, eating wings, grilled veggies another time. She also has some low grade pain most but not all days and Advil worsens the pain (so uses only tylenol if needed). Pain is diffuse, more upper/bilateral. Pain is not present on awakening but builds even before eating. Pain starts w excessive fullness and bloating. Diarrhea: also present for years. Imodium helps. On a bad day, when not taking any medicines would have up to 3 liquid/loose BMs/day. Has lost 25lbs since December - not intentional but is very active. Twirler in the blue band. No blood in Bms, no black BMs. No vomiting. Frequent nausea, no vomiting. Zofran is effective for the nausea. Pain does not wake her from sleep but if present keeps her from falling asleep. No flushing/tachycardia. No sick contacts prior to severe episodes. Family hx of: MGM lupus. No other autoimmune dx's. Work up to date (shows me results on her phone): RUQ US in December was normal. EGD/colonoscopy: per pt endoscopically normal. Celiac serology was (-). CBC, CMP normal Fecal calprotectin 796. ROS: + gets stomach muscle aches after the episodes of pain + lightheadedness, dizziness w the severe pain. + lower back pain - sore for no reasons some times. No fevers, chills, sweats No vision loss, eye pain, redness No oral ulcers No chest pain, palpitations, syncope, no edemia No cough, shortness of breath, exertional dyspnea No rashes or other skin lesions No bleeding tendencies or excessive bruising A total of 12 systems were reviewed, all others (-). ALLERGIES: Review of patient's allergies indicates: Allergen Reactions Megavite Fruits & Veggies [Anti-Oxidant] Fresh fruits and veggies PMH/PSH/Soc Hx reviewed, significant for: No past medical history on file. No past surgical history on file. Social History Socioeconomic History Marital status: Single Family history reviewed and significant for: No family history on file. Outpatient Medications Marked as Taking for the 02/11/23 encounter (Office Visit) with JUVENAL Neely Medication Sig Colestipol HCl 1 GM Oral Tablet (Colestid) Take 1 Tablet by mouth 3 times a day as needed. Ondansetron HCl 8 MG Oral Tablet (Zofran) Pantoprazole Sodium 40 MG Oral Tablet Delayed Release (Protonix) Take 1 Tablet by mouth in the morning. EXAM: BP 131/74 | Pulse 61 | Temp 36.6 C (97.8 F) | Ht 1.727 m (5' 8") | Wt 89.1 kg (196 lb 8 oz) | SpO2 99% | BMI 29.88 kg/m | BSA 2.07 m GENERAL: 22 year old female well developed and well nourished in no acute distress SKIN: no rashes, ulcers, or spider angiomata HEENT: normocephalic, sclera clear, pharynx normal NECK: supple, no lymphadenopathy, no masses or thyroid enlargement LUNGS: clear to auscultation anterior and posterior HEART: regular rate & rhythm, no murmurs and no gallops ABDOMEN: normo-active bowel sounds, soft, mild diffuse tenderness, non-distended no masses, no hepatosplenomegaly, no rebound or guarding, no bruits EXTREMITIES: no palmar erythema, no edema, no skin discoloration, no clubbing, no cyanosis NEURO: no lateralizing findings, Sensory/Motor grossly normal IMPRESSION/RECOMMENDATIONS: 22 year old female with chronic pain, diarrhea, elevated fecal calprotectin. Differentials include small bowel Crohn's (though colonoscopy normal), IBS, gallbladder hypo/hyperkinesia. - continue colestipol, as causes constipation for her, recommended decreasing to 1/2 daily. - DC omeprazole, does not have reflux symptoms or epigastric burning, may be causing/worsening diarrhea. - Dicyclomine 10mg TID before meals. - Discussion regarding the pathophysiology and natural course of IBS. Encouraged to read about the TON criteria for IBS. Upper abdominal pain (Primary) - MRI ABDOMEN W WO CONTRAST - NM HEPATOBILIARY SYSTEM WITH PHARMACOLOGIC INTERVENTION; Future; Expected date: 02/11/2023 Elevated fecal calprotectin - MRI ABDOMEN W WO CONTRAST - NM HEPATOBILIARY SYSTEM WITH PHARMACOLOGIC INTERVENTION; Future; Expected date: 02/11/2023 Recheck in approx 2m after above testing. - pt signed a release of information to obtain EGD, Colonoscopy and path results. - if above testing negative, will consider repeating the fecal calprotectin. Would be reassuring iflow level repeat testing. I spent a total of 50 minutes on the date of service in review of patient's record, and previously obtained information in person and appropriate medical visit, discussion and education of plan, withpatient and/or caregiver, placing orders for tests/referral/procedures as medically necessary and documentation of pertinent clinical information in patient's medical records for their visit today. JUVENAL Neely [facility] Gastroenterology documented in this encounter Nursing Notes * Darleen Matthew LPN - 02/11/2023 1:33 PM EDT Patient identified by name and date of . Chief Complaint Patient presents with NEW PATIENT Abdominal issues, had scopes at [facility], pt had high shagufta protectant, pt waiting on results, what should she do moving forward Pt is having bloating, lost 25 lbs in one month, pt has decrease appetite, abd pain. Having issues digesting food, gas, burping- has been having these issues since October. documented in this encounter Plan of Treatment Upcoming Encounters Date Type Specialty Care Team Description 03/16/2023 Imaging Radiology 04/09/2023 Office Visit Gastroenterology Lita Rodrigez CRNP [address] [place] [address] Scheduled Orders Name Type Priority Associated Diagnoses Orde r Schedule MRI ABDOMEN W WO CONTRAST Medical Imaging Routine Upper abdominal pain Elevated fecal calprotectin Ordered: 02/11/2023 NM HEPATOBILIARY SYSTEM WITH PHARMACOLOGIC INTERVENTION Medical Imaging Routine Upper abdominal pain Elevated fecal calprotectin Expected: 02/11/2023, Expires: 03/14/2024 Health Maintenance Due Date Last Done Comments Hepatitis B (1 of 3 - 3-dose series) 2002 COVID-19 Vaccine (#1) 04/04/2003 Yearly Wellness Visit 2006 GARDASIL-HPV IMMUNIZATION SE LIU (1 - 2-dose series) 2013 Depression Screening 2014 Gonorrhea / Chlamydia Screen 2017 HIV Screening 2017 Hepatitis C Screening 2020 DTaP,Tdap,and Td Vaccines (1 - Tdap) 2021 Influenza Vaccine (FLU shot) (#1) 2023 012 MENINGOCOCCAL (MENACTRA/MENVEO) Aged Out No longer eligible based on patient's age to complete this topic Pneumococcal Vaccine: Pediat rics (0 to 5 Years) and At-Risk Patients (6 to 64 Years) Aged Out No longer eligi ble based on patient's age to complete this topic documented as of this encounter Medical Devices Not on filedocumented as of this encounter Visit Diagnoses Diagnosis Upper abdominal pain- Primary Abdominal pain, other specified site Elevated fecal calprotectin documented in this encounter Care Teams Tire Mold Tester Relationship Specialty Start Date End Date Bjorn Yost, DO [address] [place], [place] [address] PCP - General Family Medicine 02/10/23 documented as of this encounter
--- OUTSIDE RECORDS SUMMARY | 2023-03-12 05:38 | External Medical Summary | Continuity of Care Document ---
Author Name Unknown Organization [facility] [address] Address [address] [place] [phone] Care Team Providers Care Cardiac Technician Name Role Phone Jackson Wheatleyelizabet Hairston Primary Care Physician [phone] Encounter [facility] [id number] Date(s): 12/25/22 - 12/25/22 [facility] Practice Site [address] [facility] 207 [place], [place] [address] [address] [phone] Encounter Diagnosis Abdominal pain(Discharge Diagnosis) - 12/25/22 Unspecified abdominal pain(Final) - Right upper quadrant pain(Discharge Diagnosis) - 12/25/22 Nausea(Discharge Diagnosis) - 12/25/22 Acid reflux(Discharge Diagnosis) - 12/25/22 Discharge Disposition: Home or Self Care Attending Physician: DO Plata Gretchen Elizabeth Allergies, Adverse Reactions, Alerts Substance Reaction Severity Status Pollen runny nose, sneezing Active Allergy Not found in Search 1 ears becom e itchy roof of mouth itchy lip swelling Active 1RAW oranges, watermelon, carrots, broccoli, apples, cucumbers Immunizations Given and Recorded Vaccine Date Status Refusal Reason influenza virus vaccine, inactivated 02/28/21 Give n influenza virus vaccine, inactivated 03/08/20 Give n influenza virus vaccine, inactivated 03/09/19 Give n influenza virus vaccine, inactivated 03/21/18 Give n influenza virus vaccine, inactivated 03/03/17 Give n influenza virus vaccine, inactivated 03/16/16 Give n influenza virus vaccine, inactivated 02/22/15 Give n influenza virus vaccine, inactivated 03/02/14 Give n influenza virus vaccine, inactivated 03/07/12 Give n human papillomavirus vaccine 12/14/18 Given human papillomavirus vaccine 10/17/18 Given meningococcal conjugate vaccine 10/17/18 Given meningococcal conjugate vaccine 12/25/13 Given tetanus/diphtheria/pertuss, acel (Tdap) 12/25/13 G iven hepatitis B pediatric vaccine 2 02 Recorded Not Given Vaccine Date Status Refusal Reason meningococcal conjugate vaccine 1 10/17/18 Not Giv en Parent Or Guardian Refuses meningococcal group B vaccine 3 10/17/18 Not Given Parent Or Guardian Refuses 1Result Comment: 2018-10-17: Historical information-source unspecified 2Result Comment: per patients mother want to hold off on Bexsero today 3Result Comment: per patients mother want to hold off on Bexsero today Medications famotidine 20 mg oral tablet Start: 12/25/22 11:33:00 EDT, 1 tab, PO, bid, Disp# 60 tab, Refills: 2, [id number] Start Date: 12/25/22 Stop Date: 03/25/23 Status: Ordered ondansetron 8 mg oral tablet Start: 12/25/22 11:34:00 EDT, 1 tab, PO, tid, Disp# 15 tab, Refills: 1, PRN: as needed for nausea/vomiting, Pharmacy: [facility] #[id number] Start Date: 12/25/22 Stop Date: 01/04/23 Status: Ordered Protonix 40 mg oral delayed release tablet Start: 12/25/22 11:33:00 EDT, 1 tab, PO, Daily, Disp# 30 tab, Refills: 2, [id number] Start Date: 12/25/22 Stop Date: 03/25/23 Status: Ordered Tazorac 0.1% topical cream Start: 04/20/22 8:55:00 EST, 1 appl, topical, qPM, Disp# 30 g, Refills: 2, To face in pm, Pharmacy:[id number] Start Date: 04/20/22 Status: Ordered tretinoin 0.025% topical gel Start: 02/12/22 12:58:00 EDT, 1 appl, topical, qhs, Disp# 45 g, Refills: 1, TO face nightly, Pharmacy: [id number] Start Date: 02/12/22 Status: Ordered Winlevi 1% topical cream Start: 12/31/21 14:19:00 EDT, See Instructions, Disp# 60 g, Refills: 1, 1 application topically daily in AM, Pharmacy: [id number] Start Date: 12/31/21 Status: Ordered Mental Status 12/25/22 Barriers to Learning one year None evide nt Mandatory Health Literacy Documentation Yes Health Literacy Communication Barriers N ever Primary Language Japanese Problem List Condition Confirmation Course Effective Dates Status H ealth Status Informant Acne vulgaris Confirmed Active Pes anserine bursitis Confirmed Active Hip weakness Confirmed Active Dysmenorrhea Confirmed Active Family history of cholecystectomy 1 Confirmed Active Iliotibial band syndrome Confirmed Active Knee pain Confirmed Active Heavy menses Confirmed Active Patellar tendinitis Confirmed Active 1Mother Diagnosis Diagnosis Type Effective Dates Health Status Cl inical Service Informant Nausea Discharge Diagnosis 12/25/22 Non-Specified Right upper quadrant pain Discharge Diagnosis 12/25/22 Non-Specified Acid reflux Discharge Diagnosis 12/25/22 Non-Specified Abdominal pain Discharge Diagnosis 12/25/22 Non-Specified Procedures Procedure Date Related Diagnosis Body Site Status X-ray of fingers 1 08/18/17 Comple aam 1Minimally displaced avulsion injury of the volar plate at the base of the middle phalanx Results Laboratory List Name Date Complete Blood Count w Differential (CBC ,DIFFH) 12/25/22 Comprehensive Metabolic Panel (COMP META B PANEL) 12/25/22 Immunoglobulin A (IGA) 12/25/22 Thyroid Stimulating Hormone (TSH) 3 Tissue Transglutaminase IgA Ab (TIS JAMES SGLUTAM IGA) 12/25/22 Most recent to oldest [Reference Range]: 1 eGFR CKD-EPI [>60 mL/min/1.73 m2] >90 mL /min/1.73 m2 (12/25/22 11:42 AM) Estimated CrCl 133.28 mL/min (12/25/22 9:10 PM) MPV [9.0-12.2 fL] 11.2 fL (12/25/22 11:42 AM) Immature Gran% 0.9 % (12/25/22 11:42 AM) Neut% 58.4 % (12/25/22 11:42 AM) Lymph% 25.6 % (12/25/22 11:42 AM) [place]% 12.3 % (12/25/22 11:42 AM) Baso% 0.4 % (12/25/22 11:42 AM) Eos% 2.4 % (12/25/22 11:42 AM) Immat Gran, Abs [0-0.4 K/uL] 0.04 K/uL (12/25/22 11:42 AM) Neut, Abs [2.0-7.7 K/uL] 2.72 K/uL (12/25/22 11:42 AM) Lymph, Abs [1.0-3.4 K/uL] 1.19 K/uL (12/25/22 11:42 AM) [place], Abs [0-1.0 K/uL] 0.57 K/uL (12/25/22 11:42 AM) Baso, Abs [0-0.1 K/uL] 0.02 K/uL (12/25/22 11:42 AM) Eos, Abs [0-0.5 K/uL] 0.11 K/uL (12/25/22 11:42 AM) Type of Diff: AUTO *Unknown* (12/25/22 11:42 AM) RDW [11.5-14.2 %] 12.5 % (12/25/22 11:42 AM) Anion Gap [5-14 mmol/L] 12 mmol/L (12/25/22 11:42 AM) Alb [3.5-5.2 g/dL] 4.7 g/dL (12/25/22 11:42 AM) Alk Phos [35-115 unit/L] 113 unit/L (12/25/22 11:42 AM) ALT [0-33 unit/L] 18 unit/L (12/25/22 11:42 AM) AST [0-32 unit/L] 20 unit/L (12/25/22 11:42 AM) BUN [6-23 mg/dL] 13 mg/dL (12/25/22 11:42 AM) Ca [8.4-10.2 mg/dL] 9.6 mg/dL (12/25/22 11:42 AM) Cl- [98-107 mmol/L] 103 mmol/L (12/25/22 11:42 AM) HCO3 [22-29 mmol/L] 25 mmol/L (12/25/22 11:42 AM) Cret [0.60-1.00 mg/dL] 0.80 mg/dL (12/25/22 11:42 AM) Glu [74-109 mg/dL] 93 mg/dL 1 (12/25/22 11:42 AM) Hct [35-44 %] 44.6 % *HI* (12/25/22 11:42 AM) Hgb [11.7-15.0 g/dL] 14.5 g/dL (12/25/22 11:42 AM) IgA [70-400 mg/dL] 204 mg/dL (12/25/22 11:42 AM) K [3.5-5.1 mmol/L] 4.3 mmol/L (12/25/22 11:42 AM) MCH [28-33 pg] 29.9 pg (12/25/22:42 AM) MCHC [32-36 g/dL] 32.5 g/dL (12/25/22 11:42 AM) MCV [81-96 fL] 92.0 fL (12/25/22:42 AM) Na [136-145 mmol/L] 140 mmol/L (12/25/22 11:42 AM) Plts [150-350 K/uL] 238 K/uL (12/25/22 11:42 AM) RBC [3.90-5.00 M/uL] 4.85 M/uL (12/25/22 11:42 AM) T Bili [0.0-1.2 mg/dL] 0.5 mg/dL (12/25/22 11:42 AM) Prot [6.4-8.3 g/dL] 7.7 g/dL (12/25/22 11:42 AM) TSH [0.30-4.20 uIU/mL] 1.99 uIU/mL (12/25/22 11:42 AM) WBC [4.0-10.4 K/uL] 4.65 K/uL (12/25/22 11:42 AM) tTG-IgA Ab <2 2 *Unknown* (12/25/22 11:42 AM) 1Result Comment: ADA recommendation for FASTING Serum/Plasma Glucose: Normal: 70-100 mg/dL Prediabetes: 100-125 mg/dL Diabetes: 126 mg/dL or higher 2Result Comment: Reference range: 0 to 3 Unit: U/mL INTERPRETIVE INFORMATION: Tissue Transglutaminase (tTG) Antibody, IgA 3 U/mL or less: Negative 4-10 U/mL: Weak Positive 11 U/mL or greater: Positive Presence of the tissue transglutaminase (tTG) IgA antibody is associated with glutensensitive enteropathies such as celiac disease and dermatitis herpetiformis. tTG IgA antibody concentrations greater than 40 U/mL usually correlate with results of duodenal biopsies consistent with a diagnosis of celiac disease. For antibody concentrations greater or equal to 4 U/mL but less than or equal to 40 U/mL, additional testing for endomysial (MINE) IgA concentrations may improve the positive predictive value for disease. Performed By: [facility] [address] [place], [place] [id number] Surgical Garment [employer] Supervisor: Homar Hennessy MD, PhD CLIA Number: [id number] Vital Signs Most recent to oldest [Reference Range]: 1 Patient Weight 96.0 kg (12/25/22 10:49 AM) Heart Rate 75 bpm (12/25/22 10:49 AM) Respiratory Rate 18 br/min (12/25/22 10:49 AM) Blood Pressure 104/80mmHg (12/25/22 10:49 AM) BP Location # 1 Left Arm (12/25/22 10:49 AM) Social History Social History Type Response Smoking Status Never smoked cigaret leslie Sex Female Patient Care team information Care Team Personnel Name: DO Craft Franklin J Position: Physician - Family Med Member Role: Lifetime Relationship Address: Address: [address] [place] [address] [address] [place] [address] Name: DO Wheatley Kristen M Position: Physician - Family Med Member Role: Primary Care Provider Address: Address: [address] [place] [address] [address] [place] [address] Care Team Related Persons Name: PASCALE CRAFT Address: home [address] [place], [place] [phone] Name: PASCALE CRAFT Address: NONE Address: home [address] [place], [place] [phone] Name: EILEEN CRAFT Address: home [address] [place], [place] [phone]
--- OUTSIDE RECORDS SUMMARY | 2023-03-12 05:38 | External Medical Summary | Continuity of Care Document ---
Author Name Unknown Organization [facility] [address] Address [address] [place], [place] [id number] Care Team Providers Care Furniture Salesperson Name Role Phone Tiny Wheatley Primary Care Physician [phone] [id number] Date(s): 01/15/23 - 01/15/[address] [facility] [address] [facility] [address] [facility] 1 [place], [place] [phone] Encounter Diagnosis Right upper quadrant pain(Final) - Discharge Disposition: Home or Self Care Attending Physician: ONEYDA Galindo Kelli Jo Referring Physician: ONEYDA Galindo Kelli Jo Allergies, Adverse Reactions, Alerts Substance Reaction Severity [...] to hold off on Bexsero today Medications colestipol 1 g oral tablet Start: 01/14/23 15:57:00 EDT, 1 tab, PO, tid, Disp# 90 tab, Refills: 1, with a full glass of water,[id number] Start Date: 01/14/23 Stop Date: 03/15/23 Status: Ordered famotidine 20 mg oral tablet Start: 12/25/22 11:33:00 EDT, 1 tab, PO, bid, Disp# 60 tab, Refills: 2, [id number] Start Date: 12/25/22 Stop Date: 03/25/23 Status: Ordered ondansetron 8 mg oral tablet Start: 12/25/22 11:34:00 EDT, 1 tab, PO, tid, Disp# 15 tab, Refills: 1, PRN: as needed for nausea/vomiting, [id number] Start Date: 12/25/22 Stop Date: 01/04/23 Status: Ordered Protonix 40 mg oral delayed release tablet Start: 01/14/23 15:52:00 EDT, 1 tab, PO, bid, Disp# 60 tab, Refills: 1, [id number] Start Date: 01/14/23 Stop Date: 03/15/23 Status: Ordered Tazorac 0.1% topical cream Start: 04/20/22 8:55:00 EST, 1 appl, topical, qPM, Disp# 30 g, Refills: 2, To face in pm, Pharmacy:[id number] Start Date: 04/20/22 Status: Ordered tretinoin 0.025% topical gel Start: 02/12/22 12:58:00 EDT, 1 appl, topical, qhs, Disp# 45 g, Refills: 1, TO face nightly, Pharmacy: [facility] #[id number] Start Date: 02/12/22 Status: Ordered Winlevi 1% topical cream Start: 12/31/21 14:19:00 EDT, See Instructions, Disp# 60 g, Refills: 1, 1 application topically daily in AM, [facility]acy: [id number] Start Date: 12/31/21 Status: Ordered Problem List Condition Confirmation Course Effective Dates Status H ealth Status Informant Acne vulgaris Confirmed Active Pes anserine bursitis Confirmed Active Hip weakness Confirmed Active Dysmenorrhea Confirmed Active Family history of cholecystectomy 1 Confirmed Active Iliotibial band syndrome Confirmed Active Knee pain Confirmed Active Heavy menses Confirmed Active Patellar tendinitis Confirmed Active 1Mother Procedures Procedure Date Related Diagnosis Body Site Status X-ray of fingers 1 08/18/17 Comple ama 1Minimally displaced avulsion injury of the volar plate at the base of the middle phalanx Results Orders for Microbiology Reports Name Date Extended Enteric Pathogen Panel, Stool ( EXTENDED ENTERIC PATHOGEN PANEL) 01/15/23 H. pylori antigen (H. PYLORI ANTIGEN) Parasite Panel, Stool (PARASITE PANEL) Microbiology Reports TEST:Parasite Panel STATUS:Auth (Verified) BODY SITE: SOURCE:Stool COLLECTED DATE/TIME:01/15/23 2:00 PM Status FINAL 01/16/2023 TEST:Extended Enteric Pathogen Panel STATUS:Auth (Verified) BODY SITE: SOURCE:Stool COLLECTED DATE/TIME:01/15/23 2:00 PM Status FINAL 01/16/2023 TEST:H. pylori Antigen, stool STATUS:Auth (Verified) BODY SITE: SOURCE:Stool COLLECTED DATE/TIME:01/15/23 2:00 PM Status FINAL 01/16/2023 Social History Social History Type Response Smoking Status Never smoked cigaret leslie Sex Female Patient Care team information Care Team Personnel Name: DO Craft Franklin J Position: Physician - Family Med Member Role: Lifetime Relationship Address: Address: [address] [facility] [address] [place] [address] [place] Name: DO Wheatley Kristen M Position: Physician - Family Med Member Role: Primary Care Provider Address: Address: [address] [facility] [address] [place] [address] [place] Care Team Related Persons Name: PASCALE CRAFT Address: home [address] [place] [phone] Name: PASCALE CRAFT Address: NONE Address: home [address] [place] [id number] Name: EILEEN CRAFT Address: home [address] [place] [phone]
--- OUTSIDE RECORDS SUMMARY | 2023-03-12 05:38 | External Medical Summary | Summary of Care ---
Author Name Unknown Organization [facility] Address [address] [facility] [place] [address] Phone [phone] Care Team Providers Care Vpk Teacher Name Role Phone Tiny Wheatley Primary Care Provider Reason for Visit * Reason Onset Date Comments Other 02/17/2023 Encounter Details Date Type Department Care Team Description 02/17/2023 Telephone Gastroenterology, [address] [address] [facility] [address] [facility] [address] Other Allergies Active Allergy Reactions Severity Noted Date Comments Anti-Oxidant 02/11/2023 Fresh fruits and veggies documented as of this encounter (statuses as of 02/18/2023) Medications Medication Sig Dispensed Refills Start Date End Date Status Colestipol HCl 1 GM Oral Tablet (Colestid) Take 1 Tablet by mouth 3 times a day as needed. 0 01/14/2023 Active Famotidine 20 MG Oral Tablet (Pepcid) Take 1 Tablet by mouth in the morning and 1 Tablet before bedtime. 0 01/22/2023 Active Ondansetron HCl 8 MG Oral Tablet (Zofran) 0 02/09/2023 Acti ve Dicyclomine HCl 10 MG Oral Capsule (Bentyl) Take 1 Capsule by mouth in the morning and 1 Capsule at noon and 1 Capsule in the evening and 1 Capsule before bedtime. 120 Capsule 2 02/11/2023 Active documented as of this encounter (statuses as of 02/18/2023) Active Problems No known active problems documented as of this encounter (statuses as of 02/18/2023) Social History Tobacco Use Types Packs/Day Years Used Date Smoking Tobacco: Never Assessed Sex Assigned at Date Recorded Not on file Job Start Date Occupation Industry Not on file Not on file Not on file documented as of this encounter Miscellaneous Notes * Telephone Encounter - Renetta Rucker - 02/18/2023 11:38 AM EDT Records were received on 02.18.23 Records were placed into scans on 02/18/23 * Telephone Encounter - Gertrude Alex RN - 02/17/2023 2:48 PM EDT Lita is requesting a copy of patient's EGD, colonoscoy and any path results. Called [facility]. They would like a paper sent to them requesting this information. [facility] fax: [phone] Faxed request to them. documented in this encounter Plan of Treatment Upcoming Encounters Date Type Specialty Care Team Description 03/16/2023 Imaging Radiology 04/09/2023 Office Visit Gastroenterology Lita Rodrigez CRNP [address] [place] [address] Health Maintenance Due Date Last Done Comments [...] Not on filedocumented as of this encounter Care Teams Vpk Teacher Relationship Specialty Start Date End Date Tiny Wheatley, [address] [place] [address] [address] [place] [address] PCP - General Family Medicine 02/10/23 documented as of this encounter
--- OUTSIDE RECORDS SUMMARY | 2023-03-12 05:38 | External Medical Summary | Summary of Care ---
Author Name Unknown Organization [facility] Address [address] [place] [address] Phone [phone] Care Team Providers Care Janitorial Maintenance Worker Name Role Phone Dioni Tinythea Tinoco DO Primary Care Provider Reason for Referral * Precert (Within 10 days (routine)) - Pending Review Specialty Diagnoses / Procedures Referred By Contac t Referred To Contact Radiology Diagnoses Abdominal pain, generalized Elevated fecal calprotectin Unintentional weight loss Procedures MRI ABDOMEN W WO CONTRAST MRI PELVIS W WO CONTRAST Lita Rodrigez CRNP [address] [place] [address] Referral ID Status Reason Start Date Expiration Date V isits Requested Visits Authorized [id number] Pending Review 02/25/2023 999 999 * Precert (Within 10 days (routine)) - Pending Review Specialty Diagnoses / Procedures Referred By Contac t Referred To Contact Radiology Diagnoses Abdominal pain, generalized Elevated fecal calprotectin Unintentional weight loss Procedures MRI PELVIS W WO CONTRAST MRI ABDOMEN W WO CONTRAST Lita Rodrigez CRNP [address] [place] [address] Referral ID Status Reason Start Date Expiration Date V isits Requested Visits Authorized [id number] Pending Review 02/25/2023 999 999 Reason for Visit * Reason Onset Date Comments Outpatient Testing 02/25/2023 Encounter Details Date Type Department Care Team (Late st Contact Info) Description 02/25/2023 Telephone Gastroenterology, [facility] [address] [place] [address] Lita Rodrigez CRNP [address] [place] [address] Outpatient Testing Allergies Active Allergy Reactions Criticality Noted Date Comments Anti-Oxidant 02/11/2023 Fresh fruits and veggies documented as of this encounter (statuses as of 02/25/2023) Medications Medication Sig Dispensed Refills Start Date [...] as of this encounter (statuses as of 02/25/2023) Active Problems No known active problems documented as of this encounter (statuses as of 02/25/2023) Social History Tobacco Use Types Packs/Day Years Used Date Smoking Tobacco: Never Assessed Sex and Gender Information Value Date Recorded Sex Assigned at Not on file Gender Identity Not on file Sexual Orientation Not on file Job Start Date Occupation Industry Not on file Not on file Not on file documented as of this encounter Miscellaneous Notes * Telephone Encounter - JUVENAL Neely - 02/25/2023 1:21 PM EDT Thank you. * Telephone Encounter - Carola Rodriguez RN - 02/25/2023 12:00 PM EDT Lita Suh called down to MRI ; it looks like this is the correct order for an MR enterography. Pended please sign. documented in this encounter Plan of Treatment Upcoming Encounters Date Type Department Care Team (Late st Contact Info) Description 04/09/2023 11:30 AM EST Office Visit Gastroenterology, [facility] [address] [place] [address] Lita Rodrigez CRNP [address] [place] [address] Scheduled Orders Name Type Priority Associated Diagnoses Orde r Schedule MRI PELVIS W WO CONTRAST Medical Imaging Routine Abdominal pain, generalized Elevated fecal calprotectin Unintentional weight loss Expected: 02/25/2023, Expires: 03/28/2024 MRI ABDOMEN W WO CONTRAST Medical Imaging Routine Abdominal pain, generalized Elevated fecal calprotectin Unintentional weight loss Expected: 02/25/2023, Expires: 03/28/2024 Health Maintenance Due Date Last Done Comments [...] as of this encounter Visit Diagnoses Diagnosis Abdominal pain, generalized- Primary Elevated fecal calprotectin Unintentional weight loss Loss of weight documented in this encounter Care Teams Janitorial Maintenance Worker Relationship Specialty Start Date End Date Tiny Whealtey DO [address], [place] [address] PCP - General Family Medicine 02/10/23 documented as of this encounter
--- OUTSIDE RECORDS SUMMARY | 2023-03-12 05:38 | External Medical Summary | Summary of Care ---
Author Name Unknown Organization [facility] [address] [facility] [address] Phone [phone] Care Team Providers Care Patient Care Assistant Name Role Phone Tiny Wheatley Primary Care Provider Reason for Visit * Reason Onset Date Comments Other 02/17/2023 Encounter Details Date Type Department Care Team (Late st Contact Info) Description 02/17/2023 Telephone Gastroenterology, [address] [address] Lita Rodrigez CRNP [address] [facility] [place] [address] Other Allergies Active Allergy Reactions Criticality Noted Date [...] EGD, colonoscoy and any path results. Called [facility]. They would like a paper sent to them requesting this information. [facility] fax: [phone] Faxed request to them. documented in this encounter Plan of Treatment Upcoming Encounters Date Type Department Care Team (Late st Contact Info) Description 04/09/2023 11:30 AM EST Office Visit Gastroenterology, [facility] [address] [address] Lita Rodrigez CRNP [address] [place] [address] Health Maintenance Due Date Last Done Comments [...] filedocumented as of this encounter Care Teams Patient Care Assistant Relationship Specialty Start Date End Date Tiny Wheatley DO [address] [place] [address] [place] [address] PCP - General Family Medicine 02/10/23 documented as of this encounter
--- OUTSIDE RECORDS SUMMARY | 2023-03-12 05:38 | External Medical Summary | Summary of Care ---
Author Name Unknown Organization [facility] Address [address] [facility] [place] [address] Phone [phone] Care Team Providers Care Inspector Tubes Name Role Phone HumbertoperezTiny Primary Care Provider Reason for Referral * Precert (Within 10 days (routine)) - Pending Review Specialty Diagnoses / Procedures Referred By Alia t Referred To Contact Radiology Diagnoses Upper abdominal pain Elevated fecal calprotectin Procedures NM HEPATOBILIARY SYSTEM WITH PHARMACOLOGIC INTERVENTION Lita Rodrigez CRNP [address] [place] [address] Referral ID Status Reason Start Date Expiration Date V isits Requested Visits Authorized [id number] Pending Review 02/11/2023 999 999 Reason for Visit * Reason Comments NEW PATIENT Abdominal issues, noonan d scopes at PS, pt had high shagufta protectant, pt waiting on results, what should she do moving forward Encounter Details Date Type Department Care Team (Late st Contact Info) Description 02/11/2023 1:30 PM EDT Office Visit Gastroenterology, [facility] [address] [place] [address] Lita Rodrigez CRNP [address] [place] [address] Upper abdominal pain*; Elevated fecal calprotectin Allergies Active Allergy Reactions Criticality Noted Date [...] 02/11/2023 Discontinued (Medication List Clean Up) Sutab [id number] MG Oral Tablet once. 0 01/27/2023 02/11/2023 [...] documented in this encounter Progress Notes * Lita Moyer JUVENAL Rodrigez - 02/11/2023 1:40 PM EDT Consult requested by Ref: TINY YOST[[id number]] [address] [facility] [address] [place] [address] (office) [phone] (fax) CC: Abdominal pain, diarrhea, elevated fecal calprotectin HPI: Ms. Clover Hdez is a 22 year old female pt of Tiny Yost DO with an otherwise unremarkable PMH who presents today for above issues. She is transferring GI care from [facility]/Dr. Milligan and Divina Galindo PA-C. Abd [...] records for their visit today. JUVENAL Neely [facility] Gastroenterology documented in this encounter Nursing Notes [...] issues since October. documented in this encounter Miscellaneous Notes * Addendum Note - Carola Bella RN - 02/25/2023 2:36 PM EDTAddended by: CAROLA BELLA on: 02/25/2023 02:36 PM Modules accepted: Orders documented in this encounter Plan of Treatment Upcoming Encounters Date Type Department Care Team (Late st Contact Info) Description 04/09/2023 11:30 AM EST Office Visit Gastroenterology, [facility] [address] [place] [address] Lita Rodrigez CRNP [address] [place] [address] Scheduled Orders Name Type Priority Associated Diagnoses Orde r Schedule NM HEPATOBILIARY SYSTEM WITH PHARMACOLOGIC INTERVENTION Medical [...] calprotectin documented in this encounter Care Teams Inspector Tubes Relationship Specialty Start Date End Date Tiny Yost DO [address] [facility] [address] [place] [address] PCP - General Family Medicine 02/10/23 documented as of this encounter
--- OUTSIDE RECORDS SUMMARY | 2023-03-12 05:38 | External Medical Summary | Summary of Care ---
Author Name Unknown Organization [facility] [address] [facility] [address] Phone [phone] Care Team Providers Care Mobile Equipment Servicer Name Role Phone Tiny Wheatley Primary Care Provider Reason for Visit * Reason Onset Date Comments Medical Records Request 02/11/2023 Encounter Details Date Type Department Care Team Description 02/11/2023 Telephone Gastroenterology, [facility] [address] [place] [address] Lita Rodrigez CRNP [address] [place] [address] Medical Records Request Allergies Active Allergy Reactions Severity Noted Date Comments Anti-Oxidant 02/11/2023 Fresh fruits and veggies documented as of this encounter (statuses as of 02/12/2023) Medications Medication Sig Dispensed Refills Start Date [...] as of this encounter (statuses as of 02/12/2023) Social History Tobacco Use Types Packs/Day Years Used Date Smoking Tobacco: Never Assessed Sex Assigned at Date Recorded Not on file Job Start Date Occupation Industry Not on file Not on file Not on file documented as of this encounter Miscellaneous Notes * Telephone Encounter - Carola Rodriguez RN - 02/11/2023 10:14 AM EDT Pt calling back. Reports she can bring her records with her today. She has seen a GI group in the past. Willing to sign a records release in the office today as well when she comes in. * Telephone Encounter - Darleen Matthew LPN - 02/11/2023 9:05 AM EDT Left msg on machine, need records for todays appt, nothing in chart. documented in this encounter Plan of Treatment Upcoming Encounters Date Type Specialty Care Team Description 03/16/2023 Imaging Radiology 04/09/2023 Office Visit Gastroenterology Lita Rodrigez, JUVENAL [address] [facility] [place] [address] Health Maintenance Due Date Last Done Comments [...] filedocumented as of this encounter Care Teams Mobile Equipment Servicer Relationship Specialty Start Date End Date Tiny Wheatley DO [address] [place] [address] [address] [place] [address] PCP - General Family Medicine 02/10/23 documented as of this encounter
--- OUTSIDE RECORDS SUMMARY | 2023-03-12 05:38 | External Medical Summary | Summary of Care ---
Author Name Unknown Organization [facility] Address [address] [facility] [place] [address] Phone [phone] Care Team Providers Care Signal Supervisor Name Role Phone Tiny Wheatley Primary Care Provider Reason for Visit * Reason Onset Date Comments Other 02/17/2023 Encounter Details Date Type Department Care Team Description 02/17/2023 Telephone Gastroenterology, [address] [address] Lita [facility]z [facility] [address] [facility] [address] Other Allergies Active Allergy Reactions Severity Noted Date Comments Anti-Oxidant 02/11/2023 Fresh fruits and veggies documented as of this encounter (statuses as of 02/17/2023) Medications Medication Sig Dispensed Refills Start Date [...] as of this encounter (statuses as of 02/17/2023) Active Problems No known active problems documented as of this encounter (statuses as of 02/17/2023) Social History Tobacco Use Types Packs/Day Years Used Date Smoking Tobacco: Never Assessed Sex Assigned at Date Recorded Not on file Job Start Date Occupation Industry Not on file Not on file Not on file documented as of this encounter Miscellaneous Notes * Telephone Encounter - Gertrude Alex RN - 02/17/2023 2:48 PM EDT Lita is requesting a copy of patient's EGD, colonoscoy and any path results. Called [facility]. They would like a paper sent to them requesting this information. [facility] fax: [phone] Faxed request to them. documented in this encounter Plan of Treatment Upcoming Encounters Date Type Specialty Care Team Description 03/16/2023 Imaging Radiology 04/09/2023 Office Visit Gastroenterology Lita Rodrigez, JUVENAL [address] [place] [address] Health Maintenance Due Date Last Done Comments [...] filedocumented as of this encounter Care Teams Signal Supervisor Relationship Specialty Start Date End Date Tiny Wheatley, DO [address] [facility] [address], [place] [address] PCP - General Family Medicine 02/10/23 documented as of this encounter
--- OUTSIDE RECORDS SUMMARY | 2023-03-12 05:38 | External Medical Summary | Summary of Care ---
Author Name Unknown Organization [facility] Address [address] [place] [address] Phone [phone] Care Team Providers Care History Teacher Name Role Phone Dioni Tinythea Tinoco DO Primary Care Provider Reason for Referral * Precert (Within 10 days (routine)) - Authorized Specialty Diagnoses / Procedures Referred By Contac t Referred To Contact Radiology Diagnoses Abdominal pain, generalized Elevated fecal calprotectin Unintentional weight loss Procedures MRI ABDOMEN W WO CONTRAST MRI PELVIS W WO CONTRAST Lita Rodrigez CRNP [address] [place] [address] Referral ID Status Reason Start Date Expiration Date V isits Requested Visits Authorized [id number] Authorized Precert 02/25/2023 08/24/2023 999 999 * Precert (Within 10 days (routine)) - Authorized Specialty Diagnoses / Procedures Referred By Contac t Referred To Contact Radiology Diagnoses Abdominal pain, generalized Elevated fecal calprotectin Unintentional weight loss Procedures MRI PELVIS W WO CONTRAST MRI ABDOMEN W WO CONTRAST Lita Rodrigez CRNP [address] [place] [address] Referral ID Status Reason Start Date Expiration Date V isits Requested Visits Authorized [id number] Authorized Precert 02/25/2023 08/24/2023 999 999 Reason for Visit * Reason Onset Date Comments Outpatient Testing 02/25/2023 Encounter Details Date Type Department Care Team (Late st Contact Info) Description 02/25/2023 Telephone Gastroenterology, [facility] [address] [place] [address] Lita Rodrigez CRNP [address] [place] [address] Outpatient Testing Allergies Active Allergy Reactions Criticality Noted Date Comments Anti-Oxidant 02/11/2023 Fresh fruits and veggies documented as of this encounter (statuses as of 02/26/2023) Medications Medication Sig Dispensed Refills Start Date [...] as of this encounter (statuses as of 02/26/2023) Active Problems No known active problems documented as of this encounter (statuses as of 02/26/2023) Social History Tobacco Use Types Packs/Day Years Used Date Smoking Tobacco: Never Assessed Sex and Gender Information Value Date Recorded Sex Assigned at Not on file Gender Identity Not on file Sexual Orientation Not on file Job Start Date Occupation Industry Not on file Not on file Not on file documented as of this encounter Miscellaneous Notes * Telephone Encounter - Lalito Burger OSA - 02/26/2023 1:42 PM EDT [facility] brian'd 03/12 at [place]. * Telephone Encounter - Lita Rodrigez CRNP - 02/25/2023 1:21 PM EDT Thank you. [...] 04/09/2023 11:30 AM EST Office [facility]ology, [facility] [place] [address] Lita Rodrigez CRNP [address] [place] [address] Scheduled Orders Name Type Priority Associated Diagnoses [...] weight documented in this encounter Care Teams History Teacher Relationship Specialty Start Date End Date Tiny Wheatley DO [address] [place] [address] [address] [place] [address] PCP - General Family Medicine 02/10/23 documented as of this encounter
--- OUTSIDE RECORDS SUMMARY | 2023-03-12 05:38 | External Medical Summary | Continuity of Care Document ---
Author Name Unknown Organization [address] Address [address] [place], [place] [id number] Care Team Providers Care Stringing Machine Tender Name Role Phone Tiny Wheatley Primary Care Physician [phone] Encounter [facility] [id number] Date(s): 01/14/23 [facility]/[address] [facility] [address] [address] [phone] Encounter Diagnosis Body mass index [BMI] 32.0-32.9, adult(Discharge Diagnosis) - 01/14/23 Bilateral upper abdominal pain(Discharge Diagnosis) - 01/14/23 Acute diarrhea(Discharge Diagnosis) - 01/14/23 Discharge Disposition: Home or Self Care Attending Physician: ONEYDA Galindo Kelli Jo Referring Physician: DO Plata Gretchen Elizabeth Allergies, Adverse Reactions, Alerts Substance Reaction Severity Status Pollen runny nose, sneezing Active Allergy Not found in Search 1 ears becom e itchy roof of mouth itchy lip swelling Active 1RAW oranges, watermelon, carrots, broccoli, apples, cucumbers Assessment and Plan Extracted from: Title:Office Visit Note Author:ONEYDA Galindo Kell i Jo Date:01/14/23 Acute diarrhea Bilateral upper abdominal pain Patient presents today with 3-month history of abdominal pain and yellow diarrheaBristol type . She does state that her pain is worsewith fatty/fried foods. Use of PPI and H2 betzy have not resolved her symptoms. To dateher work-up has includeda normal CMP, CBC,thyroid and celiac panels. Ultrasoundon December 22 demonstratednowall thickening or gallstones and normal sizeCBD. We will have patient trial cholestyramine at this time. Recommended singlenightly tabletfor the first week. She may titrate to effectas this medication can be constipatingup to 3 times daily. We will obtain stool studies to rule out H. pylori(though I did discuss with patient possiblefalse negative secondary to heracid blocking medicines), infectious, inflammatory, etc. We will obtain EGD and colonoscopy at this time. I have discussed with patient thatshouldher HIDA scandemonstratethe need for cholecystectomy we can reevaluate the needfor these proceduresafter her surgery. HIDA scan with ejection fractionat this time. GI follow up after procedure, sooner if needed. I have spent45 minutes in evaluation, education and documentation of this pt in both face to face and non-face to face activities. Immunizations Given and Recorded Vaccine Date Status [...] 1, with a full glass of water,Pharmacy: [facility]/pharmacy #[id number] Start Date: 01/14/23 Stop Date: 03/15/23 Status: Ordered famotidine 20 mg oral tablet Start: 12/25/22 11:33:00 EDT, 1 tab, PO, bid, Disp# 60 tab, Refills: 2, Pharmacy: [facility]/pharmacy #[id number] Start Date: 12/25/22 Stop Date: 03/25/23 Status: Ordered ondansetron 8 mg oral tablet Start: 12/25/22 11:34:00 EDT, 1 tab, PO, tid, Disp# 15 tab, Refills: 1, PRN: as needed for nausea/vomiting, Pharmacy: [facility]/pharmacy #[id number] Start Date: 12/25/22 Stop Date: 01/04/23 Status: Ordered Protonix 40 mg oral delayed release tablet Start: 01/14/23 15:52:00 EDT, 1 tab, PO, bid, Disp# 60 tab, Refills: 1, [id number] Start Date: 01/14/23 Stop Date: 03/15/23 Status: Ordered Tazorac 0.1% topical cream Start: 04/20/22 8:55:00 EST, 1 appl, topical, qPM, Disp# 30 g, Refills: 2, To face in pm, Pharmacy:[facility] #[id number] Start Date: 04/20/22 Status: Ordered tretinoin 0.025% topical gel Start: 02/12/22 12:58:00 EDT, 1 appl, topical, qhs, Disp# 45 g, Refills: 1, TO face nightly, Pharmacy: [facility] #[id number] Start Date: 02/12/22 Status: Ordered Winlevi 1% topical cream Start: 12/31/21 14:19:00 EDT, See Instructions, Disp# 60 g, Refills: 1, 1 application topically daily in AM, Pharmacy: [id number] Start Date: 12/31/21 Status: Ordered Mental Status 01/14/23 Barriers to Learning one year None evide nt Mandatory Health Literacy Documentation Yes Health Literacy Communication Barriers N ever Primary Language Belgian Problem List Condition Confirmation Course Effective Dates [...] Dates Health Status Cl inical Service Informant Body mass index [BMI] 32.0-32.9, adult Discharge Diagnosis 01/14/23 Non-Specified Bilateral upper abdominal pain Discharge Diagnosis 01/14/23 Non-Specified Acute diarrhea Discharge Diagnosis 01/14/23 Non-Specified Procedures Procedure Date Related Diagnosis Body Site Status X-ray of fingers 1 08/18/17 Comple ama 1Minimally displaced avulsion injury of the volar plate at the base of the middle phalanx Vital Signs Most recent to oldest [Reference Range]: 1 Height 169.4 cm (01/14/23 3:24 PM) Patient Weight 93.6 kg (01/14/23 3:24 PM) Body Mass Index 32.62 kg/m2 (01/14/23 3:24 PM) Heart Rate 78 bpm (01/14/23 3:24 PM) Respiratory Rate 18 br/min (01/14/23 3:24 PM) Blood Pressure 102/72mmHg (01/14/23 3:24 PM) Social History Social History Type Response Smoking Status Never smoked cigaret leslie Sex Female Gastroenterology Outpatient Note * ONEYDA Galindo, Divina Cramer: PERFORM Event Display: Gastroenterology Outpt Note Authored Date: Chief Complaint New GI patient. History of Present Illness The patient is a pleasant 45-bpmb-jlsitzlyhdld presents today for new patient evaluation of abdpain and yellow diarrhea [facility]and past medical historyreviewed. Prior records: 12/22/2022 RUQ US: No significant abnormality identifiedwithin the right upper quadrant. 12/25/2022 labs: BMP unremarkable, WBC 4.65, H&H 14.5/44.6, PLT 238, ALT 18, T. bili 0.5, alk phos 113, AST 20, TSH 1.99, celiac panel negative Abdominal surgical history: NA On exam/interview today, patient presents todaywith a approximate 3-month historyof upper abdominal painespecially after particular foods. She statesshe has noticed that lettuce comes out whole. The pain occurs after things like hamburgers, pizza, and fried food. She also did notes yellow diarrheathat is a type . She states that she has had reducedeatingsecondary to fear of the pain. This has caused an approximate 10 pound weight loss. Her father is apracticingfamily medicine physicianwho assisted her in initiatingPPI or H2 betzy. Despitethe addition of these medications her symptomshave not improved. She states that she does not have any classic heartburn symptoms such as acid upper chest or chest painas long as she is on the famotidine. She does have some intermittent nausea. But she denies vomiting, dysphagia,hoarse voice, sore throat, coughor abdominal bloating. She does state approximately 3 months ago when this occurredshe also discontinued using Advil for her menses cycleand switch to Tylenol. She did note that Advilwould cause stomach discomfort. At most she was taking 400 mg twice dailyfor the week of her menses. She does state that her mother has required a cholecystectomy. 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 Patient has 2 sisters. Family History: Deniesfamilyhistory of colorectal cancer, liver disease, IBD, IBS, pancreatic disease, celiac disease No further complaints or concerns today. Physical Exam Vitals & Measurements HR:78(Monitored) RR:18 BP:102/72 SpO2:99% HT:169.4cm WT:93.6kg WT:93.600kg(Dosing) BMI:32.62 General:Alert and oriented, No acute distress, appears stated age HENT:Normocephalic, normal hearing Respiratory: Respiration are non-labored, pt speaking in complete sentences,and no evidence of respiratory distress is noted Integumentary:Exposed skin viewable is dry and intact Psychiatric:Cooperative, appropriate mood & affect, Normal judgement Assessment/Plan Acute diarrhea Bilateral upper abdominal pain Patient presents today with 3-month history of abdominal pain and yellow diarrheaBristol type . She does state that her pain is worsewith fatty/fried foods. Use of PPI and H2 betzy have not resolved her symptoms. To dateher work-up has includeda normal CMP, CBC,thyroid and celiac panels. Ultrasoundon December 22 demonstratednowall thickening or gallstones and normal sizeCBD. We will have patient trial cholestyramine at this time. Recommended singlenightly tabletfor the first week. She may titrate to effectas this medication can be constipatingup to 3 times daily. We will obtain stool studies to rule out H. pylori(though I did discuss with patient possiblefalse negative secondary to heracid blocking medicines), infectious, inflammatory, etc. We will obtain EGD and colonoscopy at this time. I have discussed with patient thatshouldher LOKIA scandemonstratethe need for cholecystectomy we can reevaluate the needfor these proceduresafter her surgery. HIDA scan with ejection fractionat this time. GI follow up after procedure, sooner if needed. I have spent45 minutes in evaluation, education and documentation of this pt in both face to face and non-face to face activities. Problem List/Past Medical History Ongoing Acne vulgaris Dysmenorrhea Family history of cholecystectomy Heavy menses Hip weakness Iliotibial band syndrome Knee pain Patellar tendinitis Pes anserine bursitis Historical Abscess Fracture of middle phalanx of left index finger Procedure/Surgical History X-ray of fingers (08/18/2017) Medications clascoterone topical(Winlevi 1% topical cream), See Instructions, 1 refills colestipol(colestipol 1 g oral tablet), 1 g= 1 tab, PO, tid, 1 refills famotidine(famotidine 20 mg oral tablet), 20 mg= 1 tab, PO, bid, 2 refills ondansetron(ondansetron 8 mg oral tablet), 8 mg= 1 tab, PO, tid, PRN, 1 refills pantoprazole(Protonix 40 mg oral delayed release tablet), 40 mg= 1 tab, PO, bid, 1 refills tazarotene topical(Tazorac 0.1% topical cream), 1 appl, topical, qPM, 2 refills tretinoin topical(tretinoin 0.025% topical gel), 1 appl, topical, qhs, 1 refills Allergies Allergy Not found in Searchears become itchy, roof of mouth itchy, lip swelling Pollenrunny nose, sneezing Social History Smoking Status Never smoked cigarettes Alcohol - Denies Alcohol Use Sexual - No Sexual Activity Substance Abuse - Denies Substance Abuse Tobacco - Denies Tobacco Use Family History Cholecystectomy: Mother. Health Status Family Member(s) Father: History is negative Immunizations Vaccine Date Status influenza virus vaccine, inactivated 02/28/2021 Given influenza virus vaccine, inactivated 03/08/2020 Given influenza virus vaccine, inactivated 03/09/2019 Given human papillomavirus vaccine 12/14/2018 Given meningococcal conjugate vaccine 10/17/2018 Given meningococcal group B vaccine - Not Given Comments : Parent Or Guardian Refuses per patients mother want to hold off on Bexsero today human papillomavirus vaccine 10/17/2018 Given meningococcal conjugate vaccine - Not Given Comments : Parent Or Guardian Refuses per patients mother want to hold off on Bexsero today influenza virus vaccine, inactivated 03/21/2018 Given influenza virus vaccine, inactivated 03/03/2017 Given influenza virus vaccine, inactivated 03/16/2016 Given influenza virus vaccine, inactivated 02/22/2015 Given influenza virus vaccine, inactivated 03/02/2014 Given meningococcal conjugate vaccine 12/25/2013 Given tetanus/diphtheria/pertuss, acel (Tdap) 12/25/2013 Given influenza virus vaccine, inactivated 03/07/2012 Given hepatitis B pediatric vaccine 2002 Recorded Comments : 2018-10-17: Historical information-source unspecified Recommendations Health Maintenance Pending(in the next year) OverDue Adult Influenza Vaccine due10/31/22and every 1year Due Adult COVID-19 Vaccination due01/14/23Unknown Frequency Adult Folic Acid Supplementation due01/14/23and every 3year Hepatitis C Screening due01/14/23One-time only Due In Future Body Mass Index not due until01/14/24and every 1year Satisfied(in the past 1 year) Satisfied Body Mass Index on01/14/23.Satisfied by TANK Gonzales Amber Electronic Signature on File CC: Earlene Russell [address] [facility] [address] [facility] [address] Electronically Reviewed/Signed by: Divina Galindo PA-C Author Signature Dt/Tm:01/14/2023 04:16 PM Division of Gastroenterology Electronically Reviewed/Signed by: Malik Milligan MD Cosigner Signature Dt/Tm: 01/15/2023 03:26 PM Division of Gastroenterology JOSELITOS Patient Care team information Care Team Personnel Name: DO Craft Franklin J Position: Physician - Family Med Member Role: Lifetime Relationship Address: Address: [address] [facility] [address] [place] [address] [place] Name: DO Wheatley Kristen M Position: Physician - Family Med Member Role: Primary Care Provider Address: Address: [address] [facility] [address] [place] [address] Care Team Related Persons Name: PASCALE CRAFT Address: NONE Address: [address] [phone] Name: PASCALE CRAFT Address: [address] [id number] Name: EILEEN CRAFT Address: home [address] [facility] [place] [id number]
== END 2023-03-06 18:17 | disposition home or self-care (01) ==
LOC: ED 15:07 → 3N 15:07